=== PATIENT | male | born 1980 | race Caucasian/White ===

== ENCOUNTER 2016-08-25 22:51 | Inpatient (IN) | payer OTHER ==
[~2016-08-25] VITALS: Ht 185.4 cm; Wt 91.1 kg
[2016-08-25] MEDS ORDERED: SODIUM CHLORIDE 0.9% 1000ML 1,000 ML IV STA ×2 (23:40)
--- NOTE | 2016-08-25 23:43 | EMERGENCY ROOM VISIT NOTE ---
History Report prepared by French: Hieu Estrada Under the Supervision of: Dr. Lidia Mancera D.O. First contact with patient: 23:08 Chief Complaint: SEIZURE Stated Complaint: ALCOHOL WITHDRAWAL/ SEIZURE Nursing Triage Summary: pt arrives ALS from home. per report pt arrived from [place] yesterday to his parents house. pt went to [facility] for treatment for alcoholism. they were unable to admit him due to not having any medications for him. pt went home and drank a beer to prevent withdrawal symptoms. pt had seizure that lasted approx 1 minute. pt was post ictal upon EMS arrival. pt diaphoretic upon arrival. denies other symptoms. pt bit his tongue during seizure History of Present Illness The patient is a 36 year old male who presents to the Emergency Room with complaints of a resolved seizure that occurred at approximately 2200 tonight. The patient has a history of alcoholism and is currently withdrawing. He attempted to check in to [facility] rehab facility [facility] but was turned away because he has not yet detoxed. The patient lost consciousness and bit his tongue. The seizure lasted approximately 1.5 minutes as per the patient' s brother. The patient denies any head pain, neck pain, or abdominal pain. He came to the ED via EMS. The patient's last binge was 72 hours ago. He had one drink yesterday and one drink today. The patient seized approximately one hour after the drink he had today. The patient stopped drinking on his own. He cannot recall any specific seizures in the past, although he has woken up on the ground in a disoriented state similar to the one he is experiencing tonight. He has started to experience withdrawal symptoms over the past month. The patient ate and drank fluids normally today. The patient is from [place] , and is visiting his parents in [place]. He has a history of pancreatitis. The patient denies any history of cardiac disease. He has had EKGs in the past and was never told about an electrical abnormality. He is currently unemployed. Source of History: patient, family Onset: 2200 tonight Position: other (global) Quality: other (seizure) Timing: resolved Associated Symptoms: + LOC, No abdominal pain, No headache, No neck pain Review of Systems See HPI for pertinent positives & negatives. A total of 10 systems reviewed and were otherwise negative. Past Medical & Surgical Medical Problems: (1) Alcohol abuse (2) Alcohol withdrawal (3) Pancreatitis Family History No pertinent family history Social History Smoking Status: Current Every Day Smoker Alcohol Use: heavy Occupation Status: unemployed Current/Historical Medications Scheduled Omeprazole (Prilosec), 20 MG PO DAILY Allergies Coded Allergies: Sulfa Antibiotics (Verified Allergy, Unknown, "Sulfa" -- HIVES, 08/26/16) Physical Exam Vital Signs Date Time Temp Pulse Resp B/P Pulse Ox O2 Delivery O2 Flow Rate FiO2 08/26/16 01:59 73 22 128/79 97 Room Air 08/26/16 01:29 74 24 122/74 96 Room Air 08/26/16 00:59 76 23 128/69 97 Room Air 08/26/16 00:51 83 18 132/76 98 Room Air 08/25/16 23:52 83 18 124/66 96 Room Air 08/25/16 23:00 94 08/25/16 22:57 95 Room Air 08/25/16 22:57 37.0 88 23 117/64 97 Room Air Physical Exam HEENT: Head - normocephalic and atraumatic Pupils are equal, round, and reactive to light. Extraocular eye muscles are intact, and sclera are anicteric. Nose - moist nasal mucosa without discharge. Mouth - dry buccal mucosa. Oropharynx is nonerythematous and there is no tonsillar exudate or edema noted. Neck: Supple; no JVD, nuchal rigidity, cervical lymphadenopathy, or auscultated bruits. Heart: Tachycardic, regular rhythm. There is a normal S1 and S2 with no murmurs , clicks, or gallops appreciated. Lungs: Clear to auscultation bilaterally with no wheezes, rales, or rhonchi. Abdomen: Soft, completely nontender, nondistended, with good bowel sounds. There are no palpable pulsatile masses or hepatosplenomegaly. There is no guarding, rigidity, or rebound noted. Extremities: No evidence of cyanosis, clubbing, or edema. There are easily palpable peripheral pulses. Abrasion on dorsal aspect of right hand. Muscle spasms of the bilateral calves. Skin: Warm and dry with good turgor and no rashes. Flushed. Medical Decision & Procedures Laboratory Results Test 08/25/16 23:15 08/26/16 00:40 Immature Granulocyte % (Auto) 0.3 % White Blood Count 3.63 K/uL (4.8-10.8) Red Blood Count 3.92 M/uL (4.7-6.1) Hemoglobin 14.2 g/dL (14.0-18.0) Hematocrit 39.0 % (42-52) Mean Corpuscular Volume 99.5 fL (80-100) Mean Corpuscular Hemoglobin 36.2 pg (25-34) Mean Corpuscular Hemoglobin Concent 36.4 g/dl (32-36) Platelet Count 104 K/uL (130-400) Mean Platelet Volume 10.0 fL (7.4-10.4) Neutrophils (%) (Auto) 59.5 % Lymphocytes (%) (Auto) 29.2 % Monocytes (%) (Auto) 9.6 % Eosinophils (%) (Auto) 0.3 % Basophils (%) (Auto) 1.1 % Neutrophils # (Auto) 2.16 K/uL (1.4-6.5) Lymphocytes # (Auto) 1.06 K/uL (1.2-3.4) Monocytes # (Auto) 0.35 K/uL (0.11-0.59) Eosinophils # (Auto) 0.01 K/uL (0-0.5) Basophils # (Auto) 0.04 K/uL (0-0.2) Immature Granulocyte # (Auto) 0.01 K/uL (0.00-0.02) Nucleated RBC Absolute Count (auto) 0.03 K/uL (0-0) Nucleated Red Blood Cells % 0.7 % Prothrombin Time 12.2 SECONDS (9.0-12.0) Prothromb Time International Ratio 1.1 (0.9-1.1) Total Bilirubin 1.7 mg/dl (0.2-1) Direct Bilirubin 0.9 mg/dl (0-0.2) Aspartate Amino Transf (AST/SGOT) 469 U/L (15-37) Alanine Aminotransferase (ALT/SGPT) 218 U/L (12-78) Alkaline Phosphatase 116 U/L (45-117) Total Creatine Kinase 144 U/L (39-308) Creatine Kinase MB 2.4 ng/ml (0.5-3.6) Creatine Kinase MB Ratio 1.7 (0-3.0) Troponin I 0.021 ng/ml (0-0.045) Total Protein 6.2 gm/dl (6.4-8.2) Albumin 3.4 gm/dl (3.4-5.0) Lipase 307 U/L (73-393) Thyroid Stimulating Hormone (TSH) 4.310 uIu/ml (0.300-4.500) Ethyl Alcohol mg/dL < 3.0 mg/dl (0-3) Urine Color DK YELLOW Urine Appearance CLEAR (CLEAR) Urine pH 6.0 (4.5-7.5) Urine Specific [place] 1.020 (1.000-1.030) Urine Protein 1+ (NEG) Urine Glucose (UA) NEG (NEG) Urine Ketones NEG (NEG) Urine Occult Blood 1+ (NEG) Urine Nitrite NEG (NEG) Urine Bilirubin NEG (NEG) Urine Urobilinogen NEG (NEG) Urine Leukocyte Esterase NEG (NEG) Urine WBC (Auto) 0 /hpf (0-5) Urine RBC (Auto) 0-4 /hpf (0-4) Urine Hyaline Casts (Auto) 1-5 /lpf (0-5) Urine Epithelial Cells (Auto) 0-5 /lpf (0-5) Urine Bacteria (Auto) NEG (NEG) Urine Opiates Screen NEG (NEG) Urine Methadone, Qualitative NEG (NEG) Urine Barbiturates NEG (NEG) Urine Phencyclidine (PCP) Level NEG (NEG) Ur Amphetamine/Methamphetamine NEG (NEG) MDMA (Ecstasy) Screen NEG (NEG) Urine Benzodiazepines Screen NEG (NEG) Urine Cocaine Metabolite NEG (NEG) Urine Marijuana (THC) POS (NEG) Laboratory results per my review. Medications Administered Medications (Trade) Dose Ordered Sig/Caleb Route Start Time Stop Time Status Last Admin Dose Admin Chlordiazepoxide 50 mg 50 mg NOW ONCE PO 08/25/16 23:45 08/25/16 23:46 DC 08/25/16 23:45 50 MG Sodium Chloride 1,000 ml @ 999 mls/hr Q1H1M STAT IV 08/25/16 23:40 08/26/16 00:40 DC 08/25/16 23:51 999 MLS/HR Sodium Chloride 1,000 ml @ 250 mls/hr Q4H STAT IV 08/25/16 23:40 08/26/16 03:39 DC 08/25/16 23:51 250 MLS/HR Multivitamins/ Thiamine HCl/ Folic Acid/Sodium Chloride (Mvi Infusion Inj/Vitamin B-1 Inj/Folvite Inj/ Nss 1000ml) 1,011.2 ml @ 250 mls/ hr Q4H3M STAT IV 08/25/16 23:47 08/26/16 03:49 DC 08/26/16 00:04 250 MLS/HR Potassium Chloride (Kcl 10 Meq / Wtr) 10 meq NOW STAT IV 08/26/16 01:48 08/26/16 01:49 DC 08/26/16 04:39 10 MEQ Magnesium Sulfate (Magnesium Sulfate) 1 gm NOW STAT IV 08/26/16 01:48 08/26/16 01:49 DC 08/26/16 02:18 1 GM Procedure Medications administered include NSS, Librium PO, Multivitamins IV, Magnesium Sulfate IV, Potassium Chloride IV. ECG Indication: other (seizure) Rate (beats per minute): 89 Rhythm: sinus rhythm Findings: LBBB, no ectopy Change: 0010: Reviewed old EKG dated August 29, 2015 from [facility]. There was no evidence of LBBB,. ED Course 2320: The patient was evaluated by the [facility]. 2330: Past medical records reviewed. The patient was evaluated in room C4. A complete history and physical exam was performed. IV lock was established. 2340: NSS 1000 ml @ 999 mls/hr, NSS 1000 ml @ 999 mls/hr. 2345: Librium Cap 50 mg PO. 2347: Multivitamins 10 ml / Thiamine HCl 100 mg / Folic Acid 1 mg / NSS 1011.2 ml @ 250 mls/hr. 0010: Reviewed old EKG dated August 29, 2015 from [facility]. There was no evidence of LBBB,. 0035: The patient is now complaining of back pain. He has a bruise lateral to the right scapula. The patient is also having severe pain over his kidney. We will try to get a urine sample. 0046: Urine dipstick showed trace blood and trace protein. 0148: Magnesium Sulfate 1 mg IV, Potassium Chloride 10 meq IV. 0150: Updated the patient. He was stable. 0152: Discussed the case with Dr. Lemus, [facility]. The patient will be evaluated. Medical Decision The patient is a 36 year old male who presents to the ED with a resolved seizure. Differential diagnosis includes: alcohol withdrawal seizure DTs, grand mal seizure, cardiac dysrhythmia, drug abuse, alcohol intoxication, alcohol withdrawal. Laboratory interpretation: Negative alcohol, tox screen positive for marijuana, . Urinalysis dark in color, 1+ blood but no red blood cells. Potassium 3.2, magnesium 1.6, renal functions normal, TSH normal, troponin 0.021, total bilirubin 1.7, direct bilirubin 0.9, AST 469, ALT 218, white blood cell count 3.6, stable H&H, platelet count 104. The patient has a history of out cold abuse. He suffered an alcohol withdrawal seizure tonight. He is unsure whether or not he has a history of this in the past. He denies any other drug use besides marijuana. The patient had no further seizure activity while here in the emergency department he is resting comfortably at this time. Seizure precautions were taken. He was treated with oral Librium, a banana bag, magnesium, and potassium. [facility] for further management. Consults Time Called: 0140 Consulting Physician: Dr. Lemus, [facility] Returned Call: [phone]: Discussed the case with Dr. Lemus, [facility]. The patient will be evaluated. Impression Primary Impression: Alcohol related seizure Additional Impression: New onset left bundle branch block (LBBB) Scribe Attestation The scribe's documentation has been prepared under my direction and personally reviewed by me in its entirety. I confirm that the note above accurately reflects all work, treatment, procedures, and medical decision making performed by me. Departure Information Dispostion Being Evaluated By Hospitalist Patient Instructions A Signature Page, My [facility]
[2016-08-25] MEDS ORDERED: CHLORDIAZEPOXIDE 25 MG CAP PO ONE (23:45)
[2016-08-25] MEDS ORDERED: MULTI-VITAMIN INFUSION INJ 10 ML, THIAMINE HCL INJ 100 MG, FoLIC ACID INJ 1 MG in SODIU... IV STA (23:47)
[2016-08-25] MEDS ORDERED: PRLSR20 PO (23:50)
[2016-08-26] LABS: BASO % 1.1 %; BASO ABS # 0.04 K/uL (0-0.2); COMPLETE YES; EOS % 0.3 %; IG% 0.3 %; LYMPH % 29.2 %; LYMPH ABS # 1.06 K/uL (1.2-3.4); MEAN CELL VOLUME 99.5 fL (80-100); MEAN CORPUSCULAR HEMOGLOBIN 36.2 pg (25-34); MEAN CORPUSCULAR HGB CONC 36.4 g/dl (32-36); MONO % 9.6 %; NEUT % 59.5 %; PLATELET COUNT 104 K/uL (130-400); RED BLOOD COUNT 3.92 M/uL (4.7-6.1); WHITE BLOOD COUNT 3.63 K/uL (4.8-10.8)
[2016-08-26 01:16] LABS: MANUAL MICROSCOPIC REQUIRED? NO; REVIEW REQ? NO; URINE APPEARANCE CLEAR (CLEAR); URINE BILIRUBIN NEG (NEG); URINE COLOR DK YELLOW; URINE EPITHELIAL CELL AUTO 0-5 /lpf (0-5); URINE NITRITE NEG (NEG); UROBILINOGEN NEG (NEG)
[2016-08-26 01:29] LABS: POTASSIUM 3.2 mmol/L (3.5-5.1)
[2016-08-26] MEDS: D5NSS + 20MEQ KCL 1,000 ML IV SCH ×3 (01:30→16:51)
[2016-08-26 01:31] LABS: BUN/CREATININE RATIO 14.2 (10-20); CALCIUM 8.8 mg/dl (8.5-10.1); CREATININE 1.1 mg/dl (0.60-1.40); THYROID STIMULATING HORMONE 4.31 uIu/ml (0.300-4.500)
[2016-08-26 01:35] LABS: BENZODIAZEPINE, URINE NEG (NEG); COCAINE,URINE NEG (NEG); PHENCYCLIDINE, URINE NEG (NEG)
[2016-08-26 01:37] LABS: CKMB/CK RATIO 1.7 (0-3.0); MAGNESIUM 1.6 mg/dl (1.8-2.4)
[2016-08-26] MEDS ORDERED: POTASSIUM CHLORIDE 10 MEQ / 100ML WTR IV STA (01:48)
[2016-08-26] MEDS ORDERED: MAGNESIUM SULFATE 1GM / D5W 1 GM BAG IV STA (01:48)
[2016-08-26] MEDS ORDERED: ACETAMINOPHEN 325 MG TAB PO PRN (02:30)
[2016-08-26] MEDS ORDERED: MAGNESIUM HYDROXIDE SUSP 30 ML UDC PO PRN (02:30)
[2016-08-26] MEDS ORDERED: POLYETHYLENE (MIRALAX) 17 GM PACK PO PRN (02:30)
[2016-08-26] MEDS ORDERED: ZOLPIDEM TARTRATE 5 MG TAB PO PRN (02:30)
[2016-08-26] MEDS ORDERED: ONDANSETRON INJ 2 MG/ML 2 ML VIAL IV PRN (02:30)
--- NOTE | 2016-08-26 02:52 | History and Physical ---
History & Physical Date & Time of Service: Aug 26, 2016 at 02:30 Chief Complaint: Alcohol Withdrawal/ Seizure Primary Care Physician: No Doctor, Assigned History of Present Illness Source: patient 36 y/o M w/Hx ETOH abuse and dependence. Pt is visiting from [place] for a . He had been trying to taper himself off of excessive ETOH ingestion and had arranged to attend a local rehab facility. He was told by the facility that he needed to be ETOH-free for a 72 hour period as they do not offer detox. The pt then proceeded to have a witnessed tonic-clonic seizure and was brought into the ER by family. He had bitten his tongue but did not report incontinence and was lucid on arrival to the ER. He admits to recent excessive drinking with beer and vodka favoring IPAs for their alcohol content. He states that he has likely had previous seizures. Although he could not confirm this he states that he has passed out and woken up with aches and pains having bitten his tongue. He states that he is normally able to get through a day of work but develops tremors and anxiety toward the end of the day. He also states that he is severely depressed and that his brother who is a psychologist believes he may suffer from bipolar disorder. Initial labs reveal a hypoMg, hypoK, low platelets. EKG shows a new LBBB - he denies any cardiac complaints or history. Past Medical/Surgical History Medical Problems: (1) Alcohol abuse Status: Chronic (2) Pancreatitis Status: Resolved Family History No pertinent family history Both parents alive - no significant medical history Social History Smoking Status: Current Every Day Smoker Occupational Status: unemployed Allergies Coded Allergies: Sulfa Antibiotics (Verified Allergy, Unknown, "Sulfa" -- HIVES, 08/26/16) Home Medications Scheduled Omeprazole (Prilosec), 20 MG PO DAILY Review of Systems Constitutional: No chills, No fever, No sweats Eyes: No worsening of vision ENT: No hearing loss, No nasal symptoms, No unusual epistaxis Respiratory: No cough, No sputum, No wheezing Cardiovascular: No PND, No chest pain, No orthopnea Abdomen: No nausea, No pain, No vomiting Musculoskeletal: No joint pain Genitourinary - Male: No dysuria, No hematuria, No urinary frequency Neurologic: + problem reported (Witnessed seizure), No memory loss, No paralysis Psychiatric: + anxiety, + depression symptoms, + substance abuse Endocrine: No excessive thirst, No fatigue Hematologic / Lymphatic: No abnormal bleeding/bruising Integumentary: No rash Allergic / Immunologic: No environmental allergies Physical Exam Vital Signs Date Time Temp Pulse Resp B/P Pulse Ox O2 Delivery O2 Flow Rate FiO2 08/26/16 01:59 73 22 128/79 97 Room Air 08/26/16 01:29 74 24 122/74 96 Room Air 08/26/16 00:59 76 23 128/69 97 Room Air 08/26/16 00:51 83 18 132/76 98 Room Air 08/25/16 23:52 83 18 124/66 96 Room Air 08/25/16 23:00 94 08/25/16 22:57 95 Room Air 08/25/16 22:57 37.0 88 23 117/64 97 Room Air General Appearance: + pertinent finding (Plesant young male - appears anxious - no distress) Head: normocephalic, atraumatic Eyes: normal inspection, EOMI ENT: normal ENT inspection, pharynx normal Neck: supple, no JVD Respiratory/Chest: chest non-tender, lungs clear, normal breath sounds, no respiratory distress, no accessory muscle use Cardiovascular: regular rate, rhythm, no edema, no gallop, no JVD, no murmur, normal peripheral pulses Abdomen/GI: normal bowel sounds, non tender, soft Back: normal inspection, no CVA tenderness Extremities/Musculoskelatal: normal inspection, no calf tenderness, normal capillary refill, no pedal edema, normal range of motion 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, no motor/sensory deficits, alert, normal mood/affect, normal reflexes, oriented x 3 Skin: + pertinent finding (Facial erythema noted) Diagnostics Laboratory Results Results Past 24 Hours Test 08/25/16 23:15 08/26/16 00:40 08/26/16 02:20 Range/Units White Blood Count 3.63 4.8-10.8 K/uL Red Blood Count 3.92 4.7-6.1 M/uL Hemoglobin 14.2 14.0-18.0 g/dL Hematocrit 39.0 42-52 % Mean Corpuscular Volume 99.5 80-100 fL Mean Corpuscular Hemoglobin 36.2 25-34 pg Mean Corpuscular Hemoglobin Concent 36.4 32-36 g/dl Platelet Count 104 130-400 K/uL Mean Platelet Volume 10.0 7.4-10.4 fL Neutrophils (%) (Auto) 59.5 % Lymphocytes (%) (Auto) 29.2 % Monocytes (%) (Auto) 9.6 % Eosinophils (%) (Auto) 0.3 % Basophils (%) (Auto) 1.1 % Neutrophils # (Auto) 2.16 1.4-6.5 K/uL Lymphocytes # (Auto) 1.06 1.2-3.4 K/uL Monocytes # (Auto) 0.35 0.11-0.59 K/uL Eosinophils # (Auto) 0.01 0-0.5 K/uL Basophils # (Auto) 0.04 0-0.2 K/uL RDW Standard Deviation 46.6 36.4-46.3 fL RDW Coefficient of Variation 12.8 11.5-14.5 % Immature Granulocyte % (Auto) 0.3 % Immature Granulocyte # (Auto) 0.01 0.00-0.02 K/uL Nucleated RBC Absolute Count (auto) 0.03 0-0 K/uL Nucleated Red Blood Cells % 0.7 % Sodium Level 135 136-145 mmol/L Potassium Level 3.2 3.5-5.1 mmol/L Chloride Level 99 98-107 mmol/L Carbon Dioxide Level 19 21-32 mmol/L Anion Gap 20.0 3-11 mmol/L Blood Urea Nitrogen 16 7-18 mg/dl Creatinine 1.10 0.60-1.40 mg/dl Est Creatinine Clear Calc Drug Dose 103.9 ml/min Estimated GFR () 98.9 Estimated GFR (Non- 85.3 BUN/Creatinine Ratio 14.2 10-20 Random Glucose 147 70-99 mg/dl Calcium Level 8.8 8.5-10.1 mg/dl Magnesium Level 1.6 1.8-2.4 mg/dl Total Bilirubin 1.7 0.2-1 mg/dl Direct Bilirubin 0.9 0-0.2 mg/dl Aspartate Amino Transf (AST/SGOT) 469 15-37 U/L Alanine Aminotransferase (ALT/SGPT) 218 12-78 U/L Alkaline Phosphatase 116 45-117 U/L Total Creatine Kinase 144 39-308 U/L Creatine Kinase MB 2.4 0.5-3.6 ng/ml Creatine Kinase MB Ratio 1.7 0-3.0 Troponin I 0.021 0-0.045 ng/ml Total Protein 6.2 6.4-8.2 gm/dl Albumin 3.4 3.4-5.0 gm/dl Lipase 307 73-393 U/L Thyroid Stimulating Hormone (TSH) 4.310 0.300-4.500 uIu/ml Ethyl Alcohol mg/dL < 3.0 0-3 mg/dl Urine Color DK YELLOW Urine Appearance CLEAR CLEAR Urine pH 6.0 4.5-7.5 Urine Specific [place] 1.020 1.000-1.030 Urine Protein 1+ NEG Urine Glucose (UA) NEG NEG Urine Ketones NEG NEG Urine Occult Blood 1+ NEG Urine Nitrite NEG NEG Urine Bilirubin NEG NEG Urine Urobilinogen NEG NEG Urine Leukocyte Esterase NEG NEG Urine WBC (Auto) 0 0-5 /hpf Urine RBC (Auto) 0-4 0-4 /hpf Urine Hyaline Casts (Auto) 1-5 0-5 /lpf Urine Epithelial Cells (Auto) 0-5 0-5 /lpf Urine Bacteria (Auto) NEG NEG Urine Opiates Screen NEG NEG Urine Methadone, Qualitative NEG NEG Urine Barbiturates NEG NEG Urine Phencyclidine (PCP) Level NEG NEG Ur Amphetamine/Methamphetamine NEG NEG MDMA (Ecstasy) Screen NEG NEG Urine Benzodiazepines Screen NEG NEG Urine Cocaine Metabolite NEG NEG Urine Marijuana (THC) POS NEG EKG LBBB - new Impression Assessment and Plan 36 y/o M w/Hx ETOH abuse and dependence. Pt is visiting from [place] for a . He had been trying to taper himself off of excessive ETOH ingestion - proceeded to have a witnessed tonic-clonic seizure and was brought into the ER by family - Pt also states that he is severely depressed and that his brother who is a psychologist believes he may suffer from bipolar disorder. Intial labs reveal a hypoMg, hypoK, low platelets. EKG shows a new LBBB - he denies any cardiac complaints or history. 1) ETOH withdrawal and seizure - pt will be monitored on telemetry, we will provide scheduled Librium and PRN Ativan. He will receive IVF and a daily Banana bag. He has elevated LFTs and low platelets sp that we have ordered an abdominal US and an INR to calculate a discriminant function score which is pending. 2) HypoK, HypoMg - repleted - repeat labs pending for AM 3) New LBBB - echo ordered - has no cardiac history or related complaints - admitted to telemetry. 4) Depression - possibly bipolar - he does admit to manic episodes with irrational behavior - Psychiatry consulted SCDs only for prophylaxis due to fall and seizure risk - Full code Total time for this admit including review of records, meds, EKG, imaging - discussion with pt and ER attending - 38 min VTE Prophylaxis VTE Risk Assessment Done? Y/N: Yes Risk Level: Low
[2016-08-26 03:10] LABS: INR 1.1 (0.9-1.1); PROTHROMBIN TIME (PATIENT) 12.2 SECONDS (9.0-12.0)
[2016-08-26 03:46] VITALS: BP 146/90; PULSE 82; TEMP 36.7; O2SAT 96; Ht 185.4 cm; Wt 91.1 kg
[2016-08-26] MEDS ORDERED: CHLORDIAZEPOXIDE 10 MG CAP PO SCH (04:00)
[2016-08-26] MEDS ORDERED: INFLUENZA VIRUS QUAD VACCINE 0.5 ML SYR IM. ONE (04:15)
[2016-08-26] MEDS ORDERED: INFLUENZA ADMINISTRATION CHARGE ONE (04:15)
[2016-08-26] MEDS: LORAZEPAM 2 MG/ML 1 ML VIAL IV PRN ×5 (04:24→23:09)
[2016-08-26 05:48] LABS: HEMATOCRIT 37.2 % (42-52); MEAN CORPUSCULAR HEMOGLOBIN 35.5 pg (25-34); MEAN CORPUSCULAR HGB CONC 35.5 g/dl (32-36); RED BLOOD COUNT 3.72 M/uL (4.7-6.1); WHITE BLOOD COUNT 4.75 K/uL (4.8-10.8)
[2016-08-26 06:22] LABS: MEAN PLATELET VOLUME 10.2 fL (7.4-10.4); PLATELET COUNT 84 K/uL (130-400); PLT ESTIMATE DECREASED
[2016-08-26 06:29] LABS: BUN/CREATININE RATIO 13.2 (10-20); CALCIUM 7.8 mg/dl (8.5-10.1); MAGNESIUM 2.4 mg/dl (1.8-2.4); POTASSIUM 3.4 mmol/L (3.5-5.1)
[2016-08-26 06:50] LABS: CREATININE 0.77 mg/dl (0.60-1.40)
[2016-08-26 08:35] VITALS: BP 144/96; PULSE 82; TEMP 36.8; O2SAT 97
[2016-08-26] MEDS ORDERED: LORAZEPAM 2 MG/ML 1 ML VIAL IV PRN (09:30)
--- NOTE | 2016-08-26 09:34 | DIAGNOSTIC IMAGING REPORT ---
ABDOMINAL ULTRASOUND, RIGHT UPPER QUADRANT HISTORY: eval for cirrhosis. COMPARISON: None. FINDINGS: Pancreas: The visualized pancreas demonstrates a normal echotexture. Liver: The liver is echogenic consistent with fatty change. No evidence for cirrhosis. The liver is enlarged measuring 22 cm in length. Gallbladder: No gallbladder wall thickening. No gallstones. CBD: 5 mm. Right kidney: No hydronephrosis. IMPRESSION: 1. Hepatomegaly demonstrating fatty change. No evidence for cirrhosis. 2. Normal gallbladder. No gallstones. Electronically signed by: Allan Ram M.D. 08/26/2016 9:32 AM Dictated Date/Time: 08/26/2016 9:30 AM
[2016-08-26] MEDS ORDERED: LORAZEPAM INJ 1 MG in SYRINGE 0.5 ML IV PRN (09:45)
--- NOTE | 2016-08-26 10:36 | ECHOCARDIOGRAM REPORT ---
*NOTICE TO RECEIVING REPUBLICAN AGENCY This information is strictly Confidential and protected under [place] law. [place] law prohibits you from making any further disclosure of this information unless further disclosure is expressly permitted by the written consent of the person to whom it pertains or is authorized by law. A general authorization for the release of medical or other information is not sufficient for this purpose. Hospital accepts no responsibility if the information is made available to any other person, INCLUDING THE PATIENT. Interpretation Summary * Name: FLAVIO RYAN Study Date: 08/26/2016 07:31 AM BP: 146/90 mmHg * Patient Location: C.2E\S\E203\S\1 HR: 82 * : 1980 (M/d/yyyy) Gender: Male Height: 73 in * Age: 36 yrs Ethnicity: CA Weight: 207 lb * Ordering Physician: Jac Lemus * Performed By: oMira Hdez * * Reason For Study: LBBB * BSA: 2.2 m2 * -- Conclusions -- * Left ventricular systolic function is severely reduced. * There is severe global hypokinesis of the left ventricle. * Ejection Fraction = 25-30%. * There is moderate to severe mitral regurgitation. Procedure Details * A complete two-dimensional transthoracic echocardiogram was performed (2D, M-mode, Doppler and color flow Doppler). Left Ventricle * The left ventricle is moderately dilated. * There is normal left ventricular wall thickness. * Ejection Fraction = 25-30%. * Left ventricular systolic function is severely reduced. * There is severe global hypokinesis of the left ventricle. Right Ventricle * The right ventricle is grossly normal size. * There is normal right ventricular wall thickness. * The right ventricular systolic function is normal as assessed by tricuspid annular plane systolic excursion (TAPSE) (normal >1.5 cm). Atria * The left atrium is mildly dilated. * Right atrial size is normal. * There is no evidence of atrial septal defect, but resolution does not allow assessment for a patent foramen ovale. Mitral Valve * The mitral valve anatomy is normal. * There is no mitral valve stenosis. * There is moderate to severe mitral regurgitation. Tricuspid Valve * The tricuspid valve anatomy is normal. * There is no tricuspid stenosis. * There is mild tricuspid regurgitation. * Doppler findings do not suggest pulmonary hypertension. Aortic Valve * The aortic valve is normal in structure and function. * No hemodynamically significant valvular aortic stenosis. * There is no significant aortic regurgitation. Pulmonic Valve * The pulmonary valve is not well seen, but the Doppler examination is normal without significant regurgitation or stenosis. * There is no significant pulmonary regurgitation. Great Vessels * The aortic root is normal size. Pericardium/Pleural * There is no pericardial effusion. * There is no pleural effusion. Great Vessels * Normal inferior vena cava size and collapsability with sniff indicates a normal right atrial pressure of 3 mmHg MMode 2D Measurements and Calculations IVSd 0.88 cm IVSs 0.84 cm LVIDd 6.9 cm LVIDs 5.9 cm LVPWd 0.87 cm LVPWs 1.7 cm IVS/LVPW 1.0 FS 14.9 % EDV(Teich) 247.9 ml ESV(Teich) 171.8 ml EF(Teich) 30.7 % EDV(cubed) 329.6 ml ESV(cubed) 203.1 ml EF(cubed) 38.4 % % IVS thick -4.46 % % LVPW thick 96.7 % LV mass(C)d 267.0 grams LV mass(C)dI 122.3 grams/m\S\2 LV mass(C)s 331.2 grams LV mass(C)sI 151.7 grams/m\S\2 SV(Teich) 76.1 ml SI(Teich) 34.9 ml/m\S\2 SV(cubed) 126.5 ml SI(cubed) 57.9 ml/m\S\2 EPSS 2.1 cm ACS 1.5 cm LA dimension 4.7 cm asc Aorta Diam 2.7 cm LVOT diam 1.8 cm LVOT area 2.7 cm\S\2 LVAd ap4 57.4 cm\S\2 LVLd ap4 10.2 cm EDV(MOD-sp4) 261.7 ml EDV(sp4-el) 273.3 ml LVAs ap4 46.1 cm\S\2 LVLs ap4 8.7 cm ESV(MOD-sp4) 199.6 ml ESV(sp4-el) 206.5 ml EF(MOD-sp4) 23.8 % EF(sp4-el) 24.4 % LVAd ap2 61.9 cm\S\2 LVLd ap2 10.3 cm EDV(MOD-sp2) 305.7 ml EDV(sp2-el) 315.5 ml LVAs ap2 51.9 cm\S\2 LVLs ap2 10.0 cm ESV(MOD-sp2) 220.0 ml ESV(sp2-el) 229.0 ml EF(MOD-sp2) 28.0 % EF(sp2-el) 27.4 % LVLd %diff 0.82 % EDV(MOD-bp) 279.6 ml LVLs %diff 12.5 % ESV(MOD-bp) 222.8 ml EF(MOD-bp) 20.3 % SV(MOD-sp4) 62.2 ml SI(MOD-sp4) 28.5 ml/m\S\2 SV(MOD-sp2) 85.6 ml SI(MOD-sp2) 39.2 ml/m\S\2 SV(MOD-bp) 56.8 ml SI(MOD-bp) 26.0 ml/m\S\2 SV(sp4-el) 66.8 ml SI(sp4-el) 30.6 ml/m\S\2 SV(sp2-el) 86.6 ml SI(sp2-el) 39.7 ml/m\S\2 Doppler Measurements and Calculations MV E max marycruz 101.9 cm/sec MV A max marycruz 117.0 cm/sec MV E/A 0.87 MV V2 max 141.2 cm/sec MV max PG 8.0 mmHg MV V2 mean 78.8 cm/sec MV mean PG 3.0 mmHg MV V2 VTI 40.2 cm MV dec time 0.24 sec Ao V2 max 148.3 cm/sec Ao max PG 8.8 mmHg Ao max PG (full) 5.4 mmHg MAICO(V,A) 1.6 cm\S\2 MAICO(V,D) 1.6 cm\S\2 LV V1 max PG 3.4 mmHg LV V1 max 91.9 cm/sec MR max marycruz 553.9 cm/sec MR max PG 122.8 mmHg MR mean marycruz 369.1 cm/sec MR mean PG 65.7 mmHg MR VTI 194.7 cm MR PISA 1.8 cm\S\2 MR PISA radius 0.53 cm PA V2 max 93.8 cm/sec PA max PG 3.5 mmHg TR max marycruz 260.1 cm/sec
[2016-08-26] MEDS: MULTI-VITAMIN INFUSION INJ 10 ML, THIAMINE HCL INJ 100 MG, FoLIC ACID INJ 1 MG in SODIU... IV SCH (11:07)
[2016-08-26] MEDS ORDERED: PANTOprazole SOD 40 MG TAB PO ONE (11:15)
[2016-08-26] MEDS ORDERED: NICOTINE 14 MG/24 HR TDSY TD ONE (11:15)
[2016-08-26] MEDS ORDERED: CHLORDIAZEPOXIDE 25 MG CAP PO SCH (12:00)
[2016-08-26 12:10] VITALS: BP 142/96; PULSE 99; TEMP 37; O2SAT 97
[2016-08-26] MEDS ORDERED: GABAPENTIN 600 MG TAB PO SCH (14:00)
--- NOTE | 2016-08-26 14:08 | Psychiatric Progress Notes ---
Psychiatric Progress Note Date of Service Aug 26, 2016. Notes consult dictated Dx: ETOH withdrawal; ETOH use disorder; ETOH induced mood disorder; r/o bipolar affective disorder (appears likely) Plan: - please see dictated consultation for full assessment - will place him on gabapentin PARDEEP protocol for mitigation of seizure risk and reduce discomfort associated with withdrawal. - ativan prn as per pardeep protocol - d/c librium in favor of above. (metabolism may be delayed given his hepatic impairment) - encouraged direct dispo to rehab when medically cleared. he verbalized agreement - may benefit from mood stabilizer longer term as he sounds likely to have an underlying bipolar spectrum illness. will defer initiation of such while in acute withdrawal but can be considered at rehab and we discussed options. rec outpatient psych f/u as well
[2016-08-26] MEDS ORDERED: GABAPENTIN 600 MG TAB PO ONE (14:30)
[2016-08-26 15:21] VITALS: BP 122/68; PULSE 88; TEMP 36.6; O2SAT 96
[2016-08-26] MEDS: ALUMINUM/MAGNESIUM/SIMETH (MAALOX MAX) 30 ML UDC PO PRN (17:40)
[2016-08-26 19:38] VITALS: BP 124/77; PULSE 89; TEMP 36.6; O2SAT 96
--- NOTE | 2016-08-26 20:01 | PSYCHIATRIC CONSULTATION ---
DATE OF CONSULTATION: 08/26/2016 IDENTIFYING INFORMATION: This is a 36-year-old, single gentleman with a history of alcohol abuse and dependence who was admitted following a seizure yesterday HPI: Patient reportedly had a tonic-clonic seizure witnessed by his family who brought him to the ER, bit tongue, did not report incontinence, appeared lucid on arrival to ER. He admitted to excessive drinking of beer, vodka and endorsed possibility of prior seizure activity, although it was uncertain. He does report developing tremors and anxiety toward end of day in absence of alcohol. He expressed feeling severely depressed and it was noted that his brother who is a psychologist believed he may have bipolar disorder. Initial labs showed hypomagnesemia, hypokalemia, low platelets. EKG showed a left bundle branch block, he was treated with electrolyte repletion, echo ordered and admitted to telemetry. He has received chlordiazepoxide and lorazepam so far, as well as banana bag. On interview, patient was interviewed alone and then in company of his 2 brothers and mother at bedside with his permission. He describes a long history of ups and downs in his mood. He does describe feeling overly energized, can go a few days without needing much or any sleep without feeling tired, experiences thought racing, increased impulsivity such as spending, sexual indiscretions, risk taking behavior such as driving while intoxicated. It is not uncommon for his up times to end in some sort of legal problem, such as being picked up by the police for intoxication or DUI. These will often be followed by a crash of increased depression which is his primary mood state at baseline. The patient denies that he becomes suicidal when depressed but does feel very bad about himself and his circumstances which is in ly[place] contrast how he feels when on the up side where he feels sort of invincible, "like I am better than everyone else." He denies lea psychosis while manic in the form of hallucinations or particular delusions, although he does seem a little hesitant to fully disclose the possibility of historical hallucinations. He describes recent poor appetite with associated weight loss. Adequate concentration. Denies confusion or obvious cognitive impairment. He does feel sometimes acutely anxious, dizzy, sweaty, which seems to be occurring more frequently in recent history. He is uncertain if this seems to be triggered by any particular situation or activity. Recent stressors include separation from his significant other of 13 years and their 11-year-old daughter who reportedly kicked him out of the house a few months ago secondary to behaviors related to his drinking. He does express some hopefulness that he will be able to repair that relationship over time. PAST PSYCHIATRIC HISTORY: The patient denies any formalized psychiatric history, has never seen a psychologist or psychiatrist. Denies history of psychotropic medication use. No prior self-harm attempts or psychiatric hospitalizations. PAST MEDICAL HISTORY: Notable for alcohol abuse and history of pancreatitis. FAMILY HISTORY: Denies known history of bipolar disorder; however, they do report significant depression in a maternal grandfather and also depression and anxiety in maternal grandmother. There is also anxiety and depression in mother and a history of alcohol misuse, I believe in the maternal grandfather. 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 Reports legal history including possession of marijuana, 4 DUIs, has missed court hearings. Recent psychological trauma includes of grandparent. SUBSTANCE ABUSE HISTORY: The patient reports onset of alcohol use at a young age. He is unable to recall most recent sobriety, believing possibly only 5 days without alcohol in the last 6 months. He reports multiple DUIs related to alcohol use as well as loss of his family unit in the recent months. 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 He becomes tremulous towards the end of the day without alcohol use. There is a possibility of a history of seizures, likely withdrawal seizure that he experienced yesterday prior to his presentation here. He has participated in AA briefly in the past but did not feel that it was for him. He has never done any formalized rehab, last drank yesterday at 6:00 p.m. He denies illicit drug use including prescription drug abuse. OUTPATIENT MEDICATIONS: Omeprazole 20 mg daily. Please see EMR for current inpatient medications which were reviewed at the time of consultation. ALLERGIES: SULFA. REVIEW OF SYSTEMS: Notable for feeling anxious, sweaty, shaky. Denies confusion, denies hallucinations. Denies SI, HI. Denies chest pain, denies shortness of breath. PHYSICAL EXAMINATION: VITAL SIGNS: Temperature 37, pulse 99, respirations 20, blood pressure 142/96, pulse ox 97. LABORATORIES: Reviewed as per EMR, WBC low at 4.75 today. Hemoglobin and hematocrit also low, platelets low at 84. Chem panel showed a normal sodium, low potassium at 3.4, BUN 10, creatinine 0.77, EGFR 134.4, calcium low at 7.8, T bili elevated at 2.2. LFTs elevated with AST 367, ALT 183 which are down trending from initials values. Alkaline phosphatase 110. Albumin was initially normal at 3.4 and now 3.2. Total protein low at 5.7. TSH normal at 4.310. He had an ethyl alcohol level less than 3 on presentation. Positive THC on UDS. He did have an abnormal EKG in the ER with left bundle branch block, long QTc and an echo was done this morning, showing left ventricular systolic dysfunction and impaired EF. MENTAL STATUS EXAMINATION: The patient is an uncomfortable appearing gentleman, wearing a hospital gown, lying in the hospital bed. Makes good eye contact, notable mild tremor in upper extremities with extension, participatory in interview. Speech is somewhat minimal, adequately articulated. Use of language within normal limits. Thought process appears logical in response to questions. No obvious delusions. He denies suicidal or homicidal ideation. No evidence of response to internal stimuli and he denies hallucinations. He describes his mood as anxious and depressed. Affect constricted. He does not smile. He is not tearful but he appears nervous and somewhat melancholy. Insight appears likely limited at baseline. Judgment and impulse control also limited. Estimated level of intelligence appears fairly average. He is fully oriented and able to calculate world forward and backward, name 5 cities in speaking with the liaison nurse. ASSESSMENT: A 36-year-old gentleman who sounds to likely have an underlying bipolar diathesis with superimposed alcohol use disorder and associated withdrawal and likely exacerbation of mood symptomatology. Primary intervention presently is to get him through the acute withdrawal and into alcohol rehab facility for continued treatment. He may benefit from a mood stabilizer in addition to alcohol intervention. However, given hepatic impairment and current clinical status, I would defer initiation of something like lamotrigine or lithium for the time being and he can consider this either with the physician at the rehab or as an outpatient. No acute safety concerns appreciated. He has no history of self-harm and is not expressing any suicidal or homicidal ideation. He is not endorsing hallucinations or other evidence of psychosis. Dx: ETOH withdrawal; ETOH use disorder; ETOH induced mood disorder; r/o bipolar disorder PLAN: 1. Alcohol withdrawal - will discontinue the chlordiazepoxide and current Ativan p.r.n. order and substitute the LINDA protocol with a loading dose and taper of gabapentin as per protocol and Ativan p.r.n. per protocol to reduce risk of seizure and also to reduce acute withdrawal symptoms. Risks and benefits of neurontin discussed. Pt verbalized understanding. 2. Strongly encouraged the patient to pursue inpatient substance abuse rehab and we did discuss psychosocial interventions for that additionally, upon returning home. 3. Again, patient likely has an underlying bipolar disorder. He may get some acute mood stabilizing benefit from the gabapentin. He needs a period of time for abstinence from the alcohol to really diagnose an underlying mood disorder apart from what might be precipitated by his alcohol dependency. 4. will [address] [facility] [place]
[2016-08-26] MEDS: GABAPENTIN 600MG Q6H DOSE PO SCH (21:46)
[2016-08-26 23:55] VITALS: BP 125/84; PULSE 88; TEMP 36.6; O2SAT 97
[2016-08-27] MEDS ORDERED: NURSING VERBAL MED ORDER ONE (01:45)
[2016-08-27] MEDS: GABAPENTIN 600MG Q6H DOSE PO SCH (03:35)
[2016-08-27] MEDS: LORAZEPAM 2 MG/ML 1 ML VIAL IV PRN ×6 (03:58→23:29)
[2016-08-27 04:00] VITALS: BP 126/86; PULSE 88; TEMP 36.8; O2SAT 99
--- NOTE | 2016-08-27 07:25 | Progress Note ---
Progress Note [facility] Echo comlpeted - revealed EF 25% - pt without related symptoms - cardiology consult requested - signed out to AM team
[2016-08-27 07:57] VITALS: BP 141/91; PULSE 100; TEMP 36.9; O2SAT 97
[2016-08-27] MEDS: NICOTINE 14 MG/24 HR TDSY TD SCH (08:12)
[2016-08-27] MEDS: PANTOprazole SOD 40 MG TAB PO SCH (08:12)
[2016-08-27] MEDS: GABAPENTIN 600MG Q8H DOSE PO SCH ×2 (08:12→15:36)
[2016-08-27] MEDS: CARVEDILOL 3.125 MG TAB PO SCH ×2 (09:37→21:28)
[2016-08-27] MEDS: LISINOPRIL 5 MG TAB PO SCH (09:37)
--- NOTE | 2016-08-27 09:51 | CONSULTATION REPORT ---
DATE OF CONSULTATION: 08/27/2016 REASON FOR CONSULTATION: 1. Newly diagnosed Cardiomyopathy, LVEF 25% to 30% - likely alcohol induced. 2. Moderate to severe MR. 3. Newly diagnosed LBBB. HISTORY OF PRESENT ILLNESS: Mr. [place] is a 36-year-old alcoholic white male with a history of possible bipolar disorder, pancreatitis, and heavy substance abuse -- in particular alcohol. He also has used marijuana on a relatively frequent basis, and remotely used cocaine. He has not had any recent cocaine use. The patient presented acutely to [facility] on 08/25/2016 after having a tonic clonic seizure activity secondary to alcohol withdrawal. His initial EKG revealed a new left bundle branch block. Additionally, he was noted to be hypomagnesemic, hypokalemic and thrombocytopenic. The patient underwent an Echocardiogram which showed severely reduced LVEF of 25% to 30%, severe global hypokinesis, and moderate to severe MR. The patient does admit to occasional shortness of breath if he tries to walk up a very steep hill, and occasionally he has awakened with shortness of breath over the past year or two. He does admit to occasional lightheadedness, but denies any syncopal episodes to his knowledge. He denies any exertional chest pain, heaviness, tightness, or pressure. No exertional neck, jaw, back, or arm pain. No recent orthopnea or PND. No palpitations, tachy palpitations, or syncope. Additional cardiac risk factors include chronic tobacco use/nicotine dependence. MEDICATIONS: 1. Gabapentin. 2. Protonix 40 mg daily. 3. Nicoderm CQ 14 mg. 4. Lorazepam 1 mg IV q. 1 hour p.r.n. for symptoms of alcohol withdrawal. 5. Lactated ringer. 6. Tylenol p.r.n. 7. Maalox Max p.r.n. 8. Milk of Magnesia p.r.n. 9. Ambien 5 mg at bedtime p.r.n. 10. Zofran 4 mg IV q. 6 hours p.r.n. 11. MiraLax 17 grams daily as needed for constipation. ALLERGIES: SULFA DRUGS. PAST MEDICAL HISTORY: 1. Alcoholism. 2. Probable bipolar disorder. 3. History of pancreatitis. 4. Currently with abnormal LFTs. 5. Seizures secondary to alcohol withdrawal. 6. Nicotine dependence. 7. Substance abuse. SOCIAL HISTORY: The patient is a graduate from [employer]. 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 He lives in the [place] area, and is in town for a (one of his grandparents ). History of marijuana use. Alcoholism, he drinks vodka or IPAs on a daily basis. Remotely used cocaine, but none recently. FAMILY HISTORY: Significant for depression in his mother's side. Anxiety, depression and alcohol abuse in his maternal grandfather. PHYSICAL EXAMINATION: VITAL SIGNS: Temperature is 36.9 degree Celsius, pulse is 90 and regular, respiratory rate is 18 and unlabored, blood pressure is 141/91. SPO2 is 97% on room air. GENERAL: The patient is in no acute distress. He is awake and interactive. Answers questions appropriately. HEENT: Head is atraumatic, normocephalic. EOMs intact. Sclerae are anicteric. Facies symmetric. No perioral cyanosis. NECK: Without thyromegaly, adenopathy, or JVD. Jugular venous pressure is at the level of the clavicle sitting upright. CHEST AND LUNGS: Clear to auscultation throughout all lung suazo, no wheezes, rales or rhonchi. CARDIOVASCULAR: S1 and S2 are regular with a very faint grade 1/6 apical systolic murmur. No diastolic murmurs appreciated. No obvious gallops or rubs. PMI is laterally displaced. No lifts, heaves, or thrills. No abdominal, aortic or renal bruits. ABDOMEN: Bowel sounds present. No masses, organomegaly, or tenderness. EXTREMITIES: Without clubbing, cyanosis or edema. NEUROLOGIC: The patient is awake, alert, and interactive. Answers questions appropriately. Speech is clear. Normal movement in bilateral upper and lower extremities. Gait pattern not assessed. EKG on admission showed normal sinus rhythm at a rate of 90 beats per minute with a left bundle branch block pattern. Current telemetry monitoring reveals normal sinus rhythm to sinus tachycardia. He has had a few ventricular couplets and triplets, no sustained runs. LABORATORIES: White blood cell count 4.75. Hemoglobin 13.2 g/dl, hematocrit 37.2%. Platelet count is 84,000. Sodium is 138 mmol/L, potassium 3.4 mmol/L. BUN is 10 mg/dL. Creatinine is 0.77 mg/dL. Random glucose is 98 mg/dL. LFTs abnormal. Total CK 144 units per liter with a CK-MB of 2.4 ng/mL. Troponin I of 0.021 ng/mL on admission. TSH is 4.310, likely hypothyroid. Drug screen positive for urine marijuana. Alcohol less than 3.0 mg/dL. INR is 1.1. Echocardiogram as described above. Moderately dilated LV with severe global hypokinesis, LVEF 25% to 30% with moderate to severe MR. ASSESSMENT: 1. Cardiomyopathy,likely alcoholic versus idiopathic. LVEF 25% to 30%. 2. Moderate to severe MR, likely secondary to left ventricular dilatation and stretching of mitral annulus. 3. LBBB -- secondary to problem # 1. 4. Alcoholism. 5. Delirium tremens / witnessed tonic - clonic seizure activity. 6. Probable bipolar disorder. 7. Nicotine dependence. PLAN: 1. We had a long discussion with the patient regarding his current diagnoses, and he was given illustrations as well. Discussed the fact that his Cardiomyopathy is likely the result of heavy alcohol use, and he is aware that it is potentially reversible. 2. Strongly encouraged smoking cessation. 3. Maintain a low sodium, heart healthy diet. Monitor daily weights. 4. Begin Coreg 3.125 mg b.i.d. 5. Begin Lisinopril 5 mg daily. 6. Continue to monitor daily basic metabolic panel. 7. Discussed the importance of alcohol abstinence. 8. We will most likely titrate Coreg rapidly if his heart rate and blood pressure allow. 9. He is aware that going forward he will need to establish with a instructional coach in the [place] area and have a followup echocardiograms in the next 3-6 months. 10. All the patient's questions were answered to his satisfaction. CHIN
[2016-08-27 11:02] LABS: HEMATOCRIT 41.9 % (42-52); MEAN CORPUSCULAR HEMOGLOBIN 35.9 pg (25-34); MEAN CORPUSCULAR HGB CONC 35.6 g/dl (32-36); MEAN PLATELET VOLUME 10.6 fL (7.4-10.4); PLATELET COUNT 100 K/uL (130-400); RED BLOOD COUNT 4.15 M/uL (4.7-6.1); WHITE BLOOD COUNT 7.01 K/uL (4.8-10.8)
[2016-08-27 11:33] VITALS: BP 130/89; PULSE 95; TEMP 36.5; O2SAT 97
[2016-08-27 11:39] LABS: BUN/CREATININE RATIO 7.7 (10-20); CALCIUM 9.3 mg/dl (8.5-10.1); CREATININE 0.73 mg/dl (0.60-1.40); MAGNESIUM 2.1 mg/dl (1.8-2.4); POTASSIUM 3.8 mmol/L (3.5-5.1)
[2016-08-27 11:47] LABS: PHOSPHORUS 1.7 mg/dl (2.5-4.9)
[2016-08-27] MEDS: MULTI-VITAMIN INFUSION INJ 10 ML, THIAMINE HCL INJ 100 MG, FoLIC ACID INJ 1 MG in SODIU... IV SCH (11:48)
--- NOTE | 2016-08-27 15:23 | DIAGNOSTIC IMAGING REPORT ---
CHEST 2 VIEWS ROUTINE CLINICAL HISTORY: Chronic cough. COMPARISON STUDY: No previous studies for comparison. FINDINGS: Lung volumes are normal. No consolidation is identified. There is no evidence of pulmonary edema. Cardiac size is within normal limits. There is no pneumothorax or pleural effusion. IMPRESSION: No acute cardiopulmonary findings. Electronically signed by: Enoch Dunn M.D. 08/27/2016 3:21 PM Dictated Date/Time: 08/27/2016 3:20 PM
[2016-08-27] MEDS: GUAIFENESIN 600 MG TABCR PO SCH ×2 (15:36→21:28)
[2016-08-27 16:00] VITALS: BP 109/68; PULSE 88; TEMP 37; O2SAT 97
--- NOTE | 2016-08-27 17:25 | Medical Student: [facility] ---
Med Student Progress Note Date of Service Aug 27, 2016. Subjective Pt evaluation today including: conversation w/ patient, conversation w/ family , physical exam, chart review, review of studies Pt is a 36 year old male with a history of alcohol abuse who is admitted after having a witnessed alcohol withdrawal seizure on 08/25/16. He has had no further seizure-like activity since then. He c/o anxiety, tingling in his fingertips, and a tremor in his hands. He denies hallucinations. He also c/o a chronic cough , which he has had for the last 3 months with occasional yellow sputum production. He denies recent fever or dyspnea. He also c/o LUQ and mild RUQ pain , but no nausea, vomiting, diarrhea, or constipation. Review of Systems Constitutional: + see HPI Respiratory: + see HPI Cardiac: No chest pain Abdomen: + see HPI Psychiatric: + see HPI All Other Systems: Reviewed and Negative Objective Vital Signs Date Time Temp Pulse Resp B/P Pulse Ox O2 Delivery O2 Flow Rate FiO2 08/27/16 12:00 Room Air 08/27/16 11:33 36.5 95 18 130/89 97 Room Air 08/27/16 08:00 Room Air 08/27/16 07:57 36.9 100 18 141/91 97 Room Air 08/27/16 04:00 Room Air 08/27/16 04:00 36.8 88 17 126/86 99 Room Air 08/26/16 23:59 Room Air 08/26/16 23:55 36.6 88 17 125/84 97 Room Air 08/26/16 20:00 Room Air 08/26/16 19:38 36.6 89 18 124/77 96 08/26/16 16:00 Room Air Physical Exam General Appearance: WD/WN, no apparent distress Eyes: bilateral eyes EOMI, bilateral eyes normal inspection Respiratory/Chest: lungs clear, normal breath sounds, no respiratory distress, no accessory muscle use Cardiovascular: regular rate, rhythm, no edema, no gallop, no JVD, no murmur Abdomen: normal bowel sounds, soft, + tenderness (LUQ and mild RUQ), + pertinent finding (Liver edge 1-2 finger breadths below the costal margin. No splenomegaly. 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 ) Skin: normal color, warm/dry, no rash Comments: Echocardiogram obtained 08/26/16: * -- Conclusions -- * Left ventricular systolic function is severely reduced. * There is severe global hypokinesis of the left ventricle. * Ejection Fraction = 25-30%. * There is moderate to severe mitral regurgitation. Laboratory Results Last 24 Hours Test 08/27/16 10:10 White Blood Count 7.01 K/uL Red Blood Count 4.15 M/uL Hemoglobin 14.9 g/dL Hematocrit 41.9 % Mean Corpuscular Volume 101.0 fL Mean Corpuscular Hemoglobin 35.9 pg Mean Corpuscular Hemoglobin Concent 35.6 g/dl RDW Standard Deviation 49.9 fL RDW Coefficient of Variation 13.4 % Platelet Count 100 K/uL Mean Platelet Volume 10.6 fL Sodium Level 137 mmol/L Potassium Level 3.8 mmol/L Chloride Level 102 mmol/L Carbon Dioxide Level 24 mmol/L Anion Gap 11.0 mmol/L Blood Urea Nitrogen 6 mg/dl Creatinine 0.73 mg/dl Est Creatinine Clear Calc Drug Dose 156.5 ml/min Estimated GFR () 137.3 Estimated GFR (Non- 118.5 BUN/Creatinine Ratio 7.7 Random Glucose 89 mg/dl Calcium Level 9.3 mg/dl Phosphorus Level 1.7 mg/dl Magnesium Level 2.1 mg/dl Total Bilirubin 2.1 mg/dl Aspartate Amino Transf (AST/SGOT) 177 U/L Alanine Aminotransferase (ALT/SGPT) 153 U/L Alkaline Phosphatase 111 U/L Total Protein 6.7 gm/dl Albumin 3.4 gm/dl Globulin 3.3 gm/dl Albumin/Globulin Ratio 1.0 Medications Medications Administered Medications (Trade) Dose Ordered Sig/Caleb Route Start Time Stop Time Status Last Admin Dose Admin Chlordiazepoxide 50 mg 50 mg NOW ONCE PO 08/25/16 23:45 08/25/16 23:46 DC 08/25/16 23:45 50 MG Sodium Chloride 1,000 ml @ 999 mls/hr Q1H1M STAT IV 08/25/16 23:40 08/26/16 00:40 DC 08/25/16 23:51 999 MLS/HR Sodium Chloride 1,000 ml @ 250 mls/hr Q4H STAT IV 08/25/16 23:40 08/26/16 03:39 DC 08/25/16 23:51 250 MLS/HR Multivitamins/ Thiamine HCl/ Folic Acid/Sodium Chloride (Mvi Infusion Inj/Vitamin B-1 Inj/Folvite Inj/ Nss 1000ml) 1,011.2 ml @ 250 mls/ hr Q4H3M STAT IV 08/25/16 23:47 08/26/16 03:49 DC 08/26/16 00:04 250 MLS/HR Potassium Chloride (Kcl 10 Meq / Wtr) 10 meq NOW STAT IV 08/26/16 01:48 08/26/16 01:49 DC 08/26/16 04:39 10 MEQ Magnesium Sulfate (Magnesium Sulfate) 1 gm NOW STAT IV 08/26/16 01:48 08/26/16 01:49 DC 08/26/16 02:18 1 GM Al Hydrox/Mg Hydrox/ Simethicone 15 ml 15 ml Q4H PRN PO 08/26/16 02:30 09/25/16 02:29 08/26/16 17:40 15 ML Multivitamins 10 ml/Thiamine HCl 100 mg/Folic Acid 1 mg/Sodium Chloride 1,011.2 ml @ 150 mls/ hr Q24H IV 08/26/16 12:00 09/25/16 11:59 08/27/16 11:48 150 MLS/HR Potassium Chloride/Dextrose/ Sod Cl (D5nss + 20meq KCl) 1,000 ml @ 125 mls/hr Q8H IV 08/26/16 04:30 08/27/16 01:56 DC 08/26/16 16:51 125 MLS/HR Chlordiazepoxide (Librium Cap) 10 mg Q8H PO 08/26/16 04:00 08/26/16 09:17 DC 08/26/16 04:24 10 MG Lorazepam (Ativan Inj) 2 mg Q3H PRN IV 08/26/16 02:30 08/26/16 09:37 DC 08/26/16 07:47 2 MG Chlordiazepoxide (Librium Cap) 25 mg Q8H PO 08/26/16 12:00 08/26/16 14:03 DC 08/26/16 11:07 25 MG Pantoprazole Sodium (Protonix Tab) 40 mg QAM PO 08/27/16 09:00 09/26/16 08:59 08/27/16 08:12 40 MG Nicotine (Nicoderm Cq 14MG Patch) 1 patch QAM TD 08/27/16 09:00 09/26/16 08:59 08/27/16 08:12 1 PATCH Miscellaneous (Remove Nicoderm Patch) 1 ea HS N/A 08/26/16 21:00 09/25/16 20:59 08/26/16 21:00 1 EA Pantoprazole Sodium (Protonix Tab) 40 mg NOW ONCE PO 08/26/16 11:15 08/26/16 11:16 DC 08/26/16 11:50 40 MG Nicotine (Nicoderm Cq 14MG Patch) 1 patch NOW ONCE TD 08/26/16 11:15 08/26/16 11:16 DC 08/26/16 11:51 1 PATCH Lorazepam (Ativan Inj) 1 mg Q1H PRN IV 08/26/16 14:00 09/25/16 13:59 08/27/16 15:36 1 MG Gabapentin (Neurontin Tab) 1,200 mg TODAY@1430 ONCE PO 08/26/16 14:30 08/26/16 14:32 DC 08/26/16 14:38 1,200 MG Gabapentin (Neurontin Tab) 600 mg Q6H PO 08/26/16 20:30 08/27/16 02:31 DC 08/27/16 03:35 600 MG Gabapentin (Neurontin Tab) 600 mg Q8H PO 08/27/16 10:30 08/28/16 02:31 08/27/16 15:36 600 MG Carvedilol (Coreg Tab) 3.125 mg BID PO 08/27/16 09:00 09/26/16 08:59 08/27/16 09:37 3.125 MG Lisinopril (Zestril Tab) 5 mg QAM PO 08/27/16 09:00 09/26/16 08:59 08/27/16 09:37 5 MG Guaifenesin (Mucinex Contr Rel Tab) 600 mg Q12 PO 08/27/16 14:00 09/26/16 13:59 08/27/16 15:36 600 MG Assessment and Plan Assessment and Plan: Pt is a 36 year old male with a history of alcohol abuse who is admitted after having a witnessed alcohol withdrawal seizure on 08/25/16. He has been treated with Librium and Ativan prn per alcohol withdrawal protocol with no further seizure like activity. Fine tremor on exam consistent. Vital signs have been stable. Pt with thrombocytopenia and LFTs are elevated, suggesting alcoholic hepatitis, but improved from yesterday. Lipase is WNL. -Will discontinue Librium and switch to gabapentin and Ativan prn per Psychiatry recommendation. - Hypokalemia and hypomagnesemia have been corrected. Hold potassium at this time and continue to monitor daily BMP. - Continue banana bag. The pt was found to have a new LBBB on EKG upon admission. Subsequent echocardiogram showed a dilated LV with an EF of 25% with moderate to severe MR. Cardiology has seen the pt and believes that these findings are secondary to his heavy alcohol use. - Continue lisinopril 5 mg daily. - Continue Coreg 3.125 mg bid. . - Continue telemetry. - Psychiatry believes that there is a likely underlying Bipolar disorder, which will likely require long-term mood stabilization, but this will be deferred to outpatient rehab/Psychiatry physician. - Plan is for disposition to outpatient rehab once the pt is medically cleared. He lives in the [place] area and will need to arrange for outpatient Psychiatry f/u. - Chronic cough, likely chronic bronchitis given heavy smoking history and productive cough most days for 3 months. - Doubt PNA based on no prior fever or dyspnea and no leukocytosis, but will obtain CXR to further evaluate. - Will Tx with Mucinex.
--- NOTE | 2016-08-27 17:29 | Family Medicine Progress Note ---
Progress Note Date of Service Aug 27, 2016. Subjective Pt evaluation today including: conversation w/ patient, physical exam Pain: None Voiding: no voiding problems No complaints at this time Has had chronic cough for 3 months. Notes extensive smoking history. Requesting a chest x-ray No acute events overnight per nursing. Additional Comments: Review of 10 systems was otherwise negative Medications Current Inpatient Medications Medications (Trade) Dose Ordered Sig/Caleb Route Start Time Stop Time Status Last Admin Dose Admin Acetaminophen (Tylenol Tab) 650 mg Q4H PRN PO 08/26/16 02:30 09/25/16 02:29 Al Hydrox/Mg Hydrox/Simethicone (Maalox Max Susp) 15 ml Q4H PRN PO 08/26/16 02:30 09/25/16 02:29 08/26/16 17:40 15 ML Magnesium Hydroxide (Milk Of Magnesia Susp) 30 ml Q12H PRN PO 08/26/16 02:30 09/25/16 02:29 Zolpidem Tartrate (Ambien Tab) 5 mg HSZ PRN PO 08/26/16 02:30 09/25/16 02:29 Ondansetron HCl (Zofran Inj) 4 mg Q6H PRN IV 08/26/16 02:30 09/25/16 02:29 Polyethylene 17 gm 17 gm DAILY PRN PO 08/26/16 02:30 09/25/16 02:29 Multivitamins/ Thiamine HCl/ Folic Acid/Sodium Chloride (Mvi Infusion Inj/Vitamin B-1 Inj/Folvite Inj/ Nss 1000ml) 1,011.2 ml @ 150 mls/ hr Q24H IV 08/26/16 12:00 09/25/16 11:59 08/27/16 11:48 150 MLS/HR Pantoprazole Sodium (Protonix Tab) 40 mg QAM PO 08/27/16 09:00 09/26/16 08:59 08/27/16 08:12 40 MG Nicotine (Nicoderm Cq 14MG Patch) 1 patch QAM TD 08/27/16 09:00 09/26/16 08:59 08/27/16 08:12 1 PATCH Miscellaneous (Remove Nicoderm Patch) 1 ea HS N/A 08/26/16 21:00 09/25/16 20:59 08/26/16 21:00 1 EA Lorazepam (Ativan Inj) 1 mg Q1H PRN IV 08/26/16 14:00 09/25/16 13:59 08/27/16 15:36 1 MG Gabapentin (Neurontin Tab) 600 mg Q8H PO 08/27/16 10:30 08/28/16 02:31 08/27/16 15:36 600 MG Gabapentin (Neurontin Tab) 600 mg Q12H PO 08/28/16 14:30 08/29/16 02:31 Gabapentin (Neurontin Tab) 600 mg Q24H PO 08/30/16 02:30 08/30/16 02:31 Carvedilol (Coreg Tab) 3.125 mg BID PO 08/27/16 09:00 09/26/16 08:59 08/27/16 09:37 3.125 MG Lisinopril (Zestril Tab) 5 mg QAM PO 08/27/16 09:00 09/26/16 08:59 08/27/16 09:37 5 MG Guaifenesin (Mucinex Contr Rel Tab) 600 mg Q12 PO 08/27/16 14:00 09/26/16 13:59 08/27/16 15:36 600 MG Objective Vital Signs Date Time Temp Pulse Resp B/P Pulse Ox O2 Delivery O2 Flow Rate FiO2 08/27/16 16:00 37.0 88 18 109/68 97 Room Air 08/27/16 16:00 Room Air 08/27/16 12:00 Room Air 08/27/16 11:33 36.5 95 18 130/89 97 Room Air 08/27/16 08:00 Room Air 08/27/16 07:57 36.9 100 18 141/91 97 Room Air 08/27/16 04:00 Room Air 08/27/16 04:00 36.8 88 17 126/86 99 Room Air 08/26/16 23:59 Room Air 08/26/16 23:55 36.6 88 17 125/84 97 Room Air 08/26/16 20:00 Room Air 08/26/16 19:38 36.6 89 18 124/77 96 Physical Exam General Appearance: WD/WN, no apparent distress Eyes: normal inspection, EOMI ENT: hearing grossly normal, pharynx normal Neck: supple, no adenopathy, no JVD Respiratory/Chest: lungs clear, no respiratory distress Cardiovascular: regular rate, rhythm, no gallop, no murmur Abdomen: normal bowel sounds, non tender, + tenderness (mild tenderness at right and left upper quadrants) Extremities: non-tender, no pedal edema Neurologic/Psychiatric: alert, normal mood/affect, oriented x 3 Skin: normal color, warm/dry, no rash Lymphatic: no adenopathy Laboratory Results Last 24 Hours Test 08/27/16 10:10 White Blood Count 7.01 K/uL Red Blood Count 4.15 M/uL Hemoglobin 14.9 g/dL Hematocrit 41.9 % Mean Corpuscular Volume 101.0 fL Mean Corpuscular Hemoglobin 35.9 pg Mean Corpuscular Hemoglobin Concent 35.6 g/dl RDW Standard Deviation 49.9 fL RDW Coefficient of Variation 13.4 % Platelet Count 100 K/uL Mean Platelet Volume 10.6 fL Sodium Level 137 mmol/L Potassium Level 3.8 mmol/L Chloride Level 102 mmol/L Carbon Dioxide Level 24 mmol/L Anion Gap 11.0 mmol/L Blood Urea Nitrogen 6 mg/dl Creatinine 0.73 mg/dl Est Creatinine Clear Calc Drug Dose 156.5 ml/min Estimated GFR () 137.3 Estimated GFR (Non- 118.5 BUN/Creatinine Ratio 7.7 Random Glucose 89 mg/dl Calcium Level 9.3 mg/dl Phosphorus Level 1.7 mg/dl Magnesium Level 2.1 mg/dl Total Bilirubin 2.1 mg/dl Aspartate Amino Transf (AST/SGOT) 177 U/L Alanine Aminotransferase (ALT/SGPT) 153 U/L Alkaline Phosphatase 111 U/L Total Protein 6.7 gm/dl Albumin 3.4 gm/dl Globulin 3.3 gm/dl Albumin/Globulin Ratio 1.0 Assessment and Plan Patient presents with seizures related to alcohol withdrawal. Echocardiogram remarkable for reduced EF 25-30. Suggestive of alcohol-related cardiomyopathy Patient doing well at this time. No complaints. Our plan for him is as follows: Alcoholic Cardiomyopathy - New LBBB prompting echocardiogram. Reduced EF 25-30%. The following medications have been started. These should continue to be titrated up as tolerated by the patient Coreg Lisinopril - New diagnosis - Alcohol cessation reviewed with patient. Patient desires starting a rehabilitation program after discharge. - Cardiology recommendations appreciated Patient may require establishing with cardiology service in [place], where he currently resides If patient able to stop alcohol, would be helpful to clarify when a repeat echocardiogram might be appropriate for surveillance Chronic Cough with Tobacco Abuse - Nicotine Patch - Smoking cessation counselling - CXR normal - Start Mucinex to improve expectoration Chronic Ethanol Abuse - Patient has elevated transaminases at this time. Librium would not be appropriate in this setting - Lorazepam 1 mg q hourly - Continue Gabapentin taper - Continue Multivitamin/Thiamine/Folate - Abdo US: no evidence of cirrhosis, has fatty liver Transaminitis - Likely secondary to ethanol intake Alcohol Withdrawal Seizures - No seizures since admission - Electrolytes normalized Bipolar Depression - Currently not on any medications - Per psych, gabapentin may provide mood stabilizing effects. Continue for now. - Appreciate psychiatry recommendations Hypokalemia - Improved to 3.8 today Hypomagnesemia - Mag improved to 2.1 Thrombocytopenia - Improved from 84 to 100 Code Status - Level I Code Disposition - Telemetry Reviewed: Pt Seen/Exam by Me History just has some tremors. otherwise doing well Constitutional: denies: fever Respiratory: negative: short of breath Cardiovascular: denies chest pain Gastrointestinal/Abdominal: negative: abdominal pain General Appearance: no apparent distress Respiratory: lungs clear, no respiratory distress Cardiovascular: regular rate, rhythm Gastrointestinal: normal bowel sounds, soft, tenderness (mild upper abdomen) Neurologic/Psychiatric: alert, oriented x 3, other (tremors in hands) Skin Characteristics: warm/dry Assessment/Plan I have reviewed the medical record and performed a history and physical examination of this patient today. I have discussed the case with Dr. Ron. The above note reflects my findings, conclusions, and recommendations.
[2016-08-27] MEDS ORDERED: POTASSIUM PHOS 3 MMOL/1 ML INFUSION IV STA (19:09)
[2016-08-27] MEDS ORDERED: POTASSIUM PHOSPHATE INJ 21 MMOL in SODIUM CHLORIDE 0.9% 500ML 500 ML IV ONE (19:30)
[2016-08-27 20:00] VITALS: BP 120/72; PULSE 98; TEMP 36.5; O2SAT 97
[2016-08-28] VITALS (7 sets, daily range): BP systolic 107–123; BP diastolic 66–79; PULSE 81–129; TEMP 36.5–36.8; O2SAT 95–99
[2016-08-28] MEDS: GABAPENTIN 600MG Q8H DOSE PO SCH (02:09)
[2016-08-28] MEDS: LORAZEPAM 2 MG/ML 1 ML VIAL IV PRN ×2 (03:24→22:16)
[2016-08-28 06:24] LABS: HEMATOCRIT 38.1 % (42-52); MEAN CELL VOLUME 104.1 fL (80-100); MEAN CORPUSCULAR HEMOGLOBIN 35.8 pg (25-34); MEAN CORPUSCULAR HGB CONC 34.4 g/dl (32-36); RED BLOOD COUNT 3.66 M/uL (4.7-6.1); WHITE BLOOD COUNT 4.48 K/uL (4.8-10.8)
[2016-08-28 06:25] LABS: MEAN PLATELET VOLUME 10.7 fL (7.4-10.4); PLATELET COUNT 89 K/uL (130-400)
[2016-08-28 06:55] LABS: BUN/CREATININE RATIO 13.8 (10-20); CALCIUM 8.8 mg/dl (8.5-10.1); CREATININE 0.79 mg/dl (0.60-1.40); MAGNESIUM 2.1 mg/dl (1.8-2.4)
[2016-08-28 07:00] LABS: ALB/GLOB RATIO 1.1 (0.9-2); PHOSPHORUS 4.1 mg/dl (2.5-4.9)
[2016-08-28] MEDS: PANTOprazole SOD 40 MG TAB PO SCH (07:56)
[2016-08-28] MEDS: LISINOPRIL 5 MG TAB PO SCH (07:56)
[2016-08-28] MEDS: CARVEDILOL 3.125 MG TAB PO SCH (07:56)
[2016-08-28] MEDS: GUAIFENESIN 600 MG TABCR PO SCH ×2 (07:56→22:16)
[2016-08-28] MEDS: NICOTINE 14 MG/24 HR TDSY TD SCH (07:57)
[2016-08-28 08:13] LABS: REFERENCE QUEST TEST REPORT
[2016-08-28] MEDS ORDERED: CARVEDILOL 3.125 MG TAB PO ONE ×2 (09:01→09:15)
[2016-08-28] MEDS: THIAMINE HCL INJ 100 MG in SYRINGE 9 ML IV SCH (09:26)
[2016-08-28] MEDS: MULTIVITAMIN TAB PO SCH (09:26)
[2016-08-28] MEDS: FoLIC ACID INJ 1 MG in SYRINGE 9.8 ML IV SCH (09:26)
--- NOTE | 2016-08-28 09:44 | CARDIOLOGY PROGRESS NOTE ---
DATE: 08/28/2016 HISTORY OF PRESENT ILLNESS: Mr. Montana is a 36-year-old alcoholic white male who was admitted on 08/26/2016 following a tonic-clonic seizure secondary to acute alcohol withdrawal/DTs. He was noted to have a left bundle-branch block on admission which was a new diagnosis. Ultimately, he had an echocardiogram done which showed a severely reduced LV systolic function, LVEF 25% to 30% with severe global hypokinesis, moderate to severe MR. We initially met with the patient yesterday, he was started on Coreg 3.125 mg b.i.d. and lisinopril 5 mg daily. Thus far, he is tolerating these medications without adverse side effects. He offers no complaints. He is somewhat anxious, but attributes that to underlying anxiety and the fact that he is withdrawing from alcohol. He denies any chest pain, heaviness, tightness or pressure. Denies any neck, jaw, back, or arm pain. No shortness of breath, dyspnea on exertion, orthopnea or PND. He still feels mildly lightheaded from time to time but is sitting around a lot. He has not had any syncope. No further seizure activity. PHYSICAL EXAMINATION: VITAL SIGNS: Temperature is 36.8 degrees Celsius, pulse is 98 and regular, respiratory rate is 18 and unlabored, blood pressure is 115/67, SpO2 is 98% on room air. GENERAL: The patient is in no acute distress. HEENT: Head is atraumatic, normocephalic. EOMs intact. Sclerae are anicteric. Face is symmetric. No perioral cyanosis. Mucous membranes are moist. NECK: Without thyromegaly, adenopathy or JVD. Carotid upstrokes +2 bilaterally without bruits. CHEST AND LUNGS: Clear to auscultation throughout all lung suazo, no wheezes, rales or rhonchi. CARDIOVASCULAR: S1 and S2 are regular with a grade 1/6 apical holosystolic murmur. No diastolic murmurs appreciated. No obvious gallops or rubs. PMI is laterally displaced. No lifts, heaves, or thrills. ABDOMINAL EXAM: Bowel sounds present. No masses, organomegaly or tenderness. EXTREMITIES: No clubbing, cyanosis or edema. NEUROLOGIC: The patient is awake, alert and oriented. Pleasant and cooperative. Answers questions appropriately. Speech is clear. Normal movement in all 4 extremities. Telemetry monitoring shows sinus rhythm to sinus tachycardia with an LBBB pattern. ASSESSMENT: 1. Cardiomyopathy, left ventricular ejection fraction 25% to 30%, likely alcoholic versus idiopathic. 2. Moderate to severe mitral regurgitation, likely secondary to left ventricular dilatation and stretching of the mitral annulus. 3. Newly diagnosed left bundle-branch block -- secondary to problem #1. 4. Alcoholism with acute alcohol withdrawal. 5. Delirium tremens/witnessed tonic-clonic seizure activity prior to admission. 6. Probable bipolar disorder. 7. Nicotine dependence. PLAN: 1. Thus far patient is doing reasonably well. He remains stable from a cardiac standpoint, although he is tachycardic much of the time. 2. Recommend increasing Coreg to 6.25 mg b.i.d. 3. Continue lisinopril 5 mg daily. 4. Continue to monitor daily laboratories. 5. Stressed the importance of alcohol and nicotine abstinence. 6. His family is very involved, and they are all actively involved in getting a plan for a alcohol/drug rehab facility. 7. Would recommend repeating an echocardiogram in approximately 3 months-- typically 3 months after he is on the maximum tolerated doses of Coreg and lisinopril. 8. We will continue to follow along while hospitalized and if he remains in the area we will follow up with him as an outpatient within the next 1-2 weeks after discharge. CHIN
[2016-08-28] MEDS: GABAPENTIN 600MG Q12H DOSE PO SCH ×2 (14:43→22:24)
--- NOTE | 2016-08-28 16:39 | Family Medicine Progress Note ---
Progress Note Date of Service Aug 28, 2016. Subjective Pt evaluation today including: conversation w/ patient, physical exam Pain: None PO Intake: Good Voiding: no voiding problems, no incontinence Denies any pain at this time Had some difficulty sleeping last night. Having some underlying anxiety regarding new CHF diagnosis and how he would fare in rehab. Continues to be motivated to go inpatient rehabilitation therapy No chest pain, palpitations, shortness of breath or syncope over 24 hours. Additional Comments: review of systems otherwise negative. Medications Current Inpatient Medications Medications (Trade) Dose Ordered Sig/Caleb Route Start Time Stop Time Status Last Admin Dose Admin Acetaminophen (Tylenol Tab) 650 mg Q4H PRN PO 08/26/16 02:30 09/25/16 02:29 Al Hydrox/Mg Hydrox/Simethicone (Maalox Max Susp) 15 ml Q4H PRN PO 08/26/16 02:30 09/25/16 02:29 08/26/16 17:40 15 ML Magnesium Hydroxide (Milk Of Magnesia Susp) 30 ml Q12H PRN PO 08/26/16 02:30 09/25/16 02:29 Zolpidem Tartrate (Ambien Tab) 5 mg HSZ PRN PO 08/26/16 02:30 09/25/16 02:29 Ondansetron HCl (Zofran Inj) 4 mg Q6H PRN IV 08/26/16 02:30 09/25/16 02:29 Polyethylene (Miralax Powder Packet) 17 gm DAILY PRN PO 08/26/16 02:30 09/25/16 02:29 Pantoprazole Sodium (Protonix Tab) 40 mg QAM PO 08/27/16 09:00 09/26/16 08:59 08/28/16 07:56 40 MG Nicotine (Nicoderm Cq 14MG Patch) 1 patch QAM TD 08/27/16 09:00 09/26/16 08:59 08/28/16 07:57 1 PATCH Miscellaneous (Remove Nicoderm Patch) 1 ea HS N/A 08/26/16 21:00 09/25/16 20:59 08/27/16 21:00 1 EA Lorazepam (Ativan Inj) 1 mg Q1H PRN IV 08/26/16 14:00 09/25/16 13:59 08/28/16 03:24 1 MG Gabapentin (Neurontin Tab) 600 mg Q12H PO 08/28/16 14:30 08/29/16 02:31 08/28/16 14:43 600 MG Gabapentin (Neurontin Tab) 600 mg Q24H PO 08/30/16 02:30 08/30/16 02:31 Lisinopril (Zestril Tab) 5 mg QAM PO 08/27/16 09:00 09/26/16 08:59 08/28/16 07:56 5 MG Guaifenesin 600 mg 600 mg Q12 PO 08/27/16 14:00 09/26/16 13:59 08/28/16 07:56 600 MG Folic Acid 1 mg/ Syringe 10 ml @ 5 mls/min QAM IV 08/28/16 09:00 09/27/16 08:59 08/28/16 09:26 5 MLS/MIN Thiamine HCl/ Syringe (Vitamin B-1 Inj/ Syringe) 10 ml @ 2 mls/min QAM IV 08/28/16 09:00 09/27/16 08:59 08/28/16 09:26 2 MLS/MIN Multivitamins (Multivitamin Tab) 1 tab QAM PO 08/28/16 09:00 09/27/16 08:59 08/28/16 09:26 1 TAB Carvedilol (Coreg Tab) 6.25 mg BID PO 08/28/16 21:00 09/27/16 20:59 Objective Vital Signs Date Time Temp Pulse Resp B/P Pulse Ox O2 Delivery O2 Flow Rate FiO2 08/28/16 16:16 36.6 129 20 123/75 97 08/28/16 12:00 Room Air 08/28/16 11:00 36.8 85 18 107/66 95 08/28/16 08:00 Room Air 08/28/16 04:00 36.8 81 18 115/67 98 Room Air 08/28/16 04:00 98 Room Air 08/28/16 00:00 99 Room Air 08/28/16 00:00 36.6 92 17 115/73 99 Room Air 08/27/16 20:00 97 Room Air 08/27/16 20:00 36.5 98 20 120/72 97 Room Air Physical Exam General Appearance: WD/WN, no apparent distress, + pertinent finding (mildly plethora of the face) Eyes: PERRL, EOMI, + pertinent finding (no jaundice) ENT: hearing grossly normal, pharynx normal Neck: supple, no adenopathy, no JVD Respiratory/Chest: lungs clear, no respiratory distress Cardiovascular: regular rate, rhythm, no gallop, no murmur Abdomen: normal bowel sounds, soft, + pertinent finding (mild RUQ and LUQ tenderness; no rebound or rigidity) Extremities: non-tender, no pedal edema Neurologic/Psychiatric: alert, oriented x 3 Skin: normal color, warm/dry, no rash Lymphatic: no adenopathy Laboratory Results Last 24 Hours Test 08/27/16 23:43 08/28/16 05:15 Phosphorus Level 4.3 mg/dl 4.1 mg/dl White Blood Count 4.48 K/uL Red Blood Count 3.66 M/uL Hemoglobin 13.1 g/dL Hematocrit 38.1 % Mean Corpuscular Volume 104.1 fL Mean Corpuscular Hemoglobin 35.8 pg Mean Corpuscular Hemoglobin Concent 34.4 g/dl RDW Standard Deviation 52.5 fL RDW Coefficient of Variation 13.7 % Platelet Count 89 K/uL Mean Platelet Volume 10.7 fL Sodium Level 140 mmol/L Potassium Level 4.0 mmol/L Chloride Level 104 mmol/L Carbon Dioxide Level 27 mmol/L Anion Gap 9.0 mmol/L Blood Urea Nitrogen 11 mg/dl Creatinine 0.79 mg/dl Est Creatinine Clear Calc Drug Dose 144.7 ml/min Estimated GFR () 133.0 Estimated GFR (Non- 114.7 BUN/Creatinine Ratio 13.8 Random Glucose 100 mg/dl Calcium Level 8.8 mg/dl Magnesium Level 2.1 mg/dl Total Bilirubin 1.2 mg/dl Aspartate Amino Transf (AST/SGOT) 103 U/L Alanine Aminotransferase (ALT/SGPT) 116 U/L Alkaline Phosphatase 95 U/L Total Protein 6.0 gm/dl Albumin 3.2 gm/dl Globulin 2.8 gm/dl Albumin/Globulin Ratio 1.1 Vitamin B12 Level 413 pg/mL Folate 13.51 ng/mL Assessment and Plan Pleasant 36 year old gentleman with alcohol withrawal seizures and new diagnosis of alcoholic cardiomyopathy Doing well at this time. No events overnight. Does express anxiety regarding his new diagnosis and path towards sobriety. Our plan for him is as follows: Alcoholic Cardiomyopathy - New LBBB prompting echocardiogram. Reduced EF 25-30%. The following medications have been started. These should continue to be titrated up as tolerated by the patient Coreg has been titrated to 6 mg daily Lisinopril remains at 5 mg BID - Pneumococcal vaccine (PPSV 23) given today - Alcohol cessation reviewed with patient. Awaiting acceptance for inpatient rehabilitation. - Cardiology recommendations appreciated Will continue to follow Recommend titrating meds to maximum tolerated If local, would see patient as outpatient 1-2 weeks after discharge Will require follow-up echocardiogram 3 months after on maximally tolerated medical therapy Chronic Cough with Tobacco Abuse - Continue Nicotine Patch - Smoking cessation counselling - CXR within normal limits - Continue Mucinex Chronic Ethanol Abuse - Continue Lorazepam 1 mg q hourly for anxiety - Continue Gabapentin taper - Continue Multivitamin/Thiamine/Folate. Have discontinued Banana bag to avoid fluid overload Will give IV doses of Thiamin and Folate PO multivitamin - Abdo US: no evidence of cirrhosis, has fatty liver Transaminitis - Likely secondary to ethanol intake; continues to improve - Repeat x 1 then scale back to BMP only Alcohol Withdrawal Seizures - Seizure free > 24 hours - Electrolytes normalized Bipolar Depression - Currently not on any medications - Per psych, gabapentin may provide mood stabilizing effects. Continue for now. - Appreciate psychiatry recommendations Hypokalemia - Resolved; at 4 today Hypomagnesemia - Called last night about Mag 1.7 -- administered 21 mmol KPhos Mag improved today to 2.1 Thrombocytopenia - Currently 89; no evidence of active bleeding - Likely related to chronic alcohol consumption Code Status - Level I Code Disposition - Telemetry - Awaiting acceptance for inpatient rehabilitation Continued [facility] stay due to: other (awaiting direct admission for inpatient rehabilitation) Discharge planning: rehab hospital Reviewed: Pt Seen/Exam by Me History feeling upset that he got mad at his mom and brother when they were visiting today. Constitutional: denies: fever Respiratory: negative: short of breath Cardiovascular: denies chest pain General Appearance: no apparent distress Respiratory: lungs clear, no respiratory distress Cardiovascular: regular rate, rhythm Gastrointestinal: normal bowel sounds, soft Neurologic/Psychiatric: alert, oriented x 3 Skin Characteristics: warm/dry Assessment/Plan I have reviewed the medical record and performed a history and physical examination of this patient today. I have discussed the case with Dr. Ron. The above note reflects my findings, conclusions, and recommendations. Awaiting placement to inpatient [facility].
[2016-08-28] MEDS: CARVEDILOL 6.25 MG TAB PO SCH (22:16)
[2016-08-29 04:00] VITALS: BP 101/64; PULSE 101; TEMP 36.7; O2SAT 99
[2016-08-29] MEDS: LORAZEPAM 2 MG/ML 1 ML VIAL IV PRN (04:01)
[2016-08-29 04:29] LABS: HEMATOCRIT 38.1 % (42-52); MEAN CELL VOLUME 104.4 fL (80-100); MEAN CORPUSCULAR HEMOGLOBIN 35.6 pg (25-34); MEAN CORPUSCULAR HGB CONC 34.1 g/dl (32-36); MEAN PLATELET VOLUME 10.5 fL (7.4-10.4); PLATELET COUNT 106 K/uL (130-400); RED BLOOD COUNT 3.65 M/uL (4.7-6.1); WHITE BLOOD COUNT 4.69 K/uL (4.8-10.8)
[2016-08-29 04:57] LABS: BUN/CREATININE RATIO 14.3 (10-20); CREATININE 0.84 mg/dl (0.60-1.40); POTASSIUM 3.9 mmol/L (3.5-5.1)
[2016-08-29 05:00] LABS: ALB/GLOB RATIO 1.2 (0.9-2); PHOSPHORUS 4.6 mg/dl (2.5-4.9)
[2016-08-29 07:29] VITALS: BP 132/87; PULSE 91; TEMP 36.9; O2SAT 99
[2016-08-29] MEDS: FoLIC ACID INJ 1 MG in SYRINGE 9.8 ML IV SCH (09:05)
[2016-08-29] MEDS: THIAMINE HCL INJ 100 MG in SYRINGE 9 ML IV SCH (09:05)
[2016-08-29] MEDS: GUAIFENESIN 600 MG TABCR PO SCH ×2 (09:05→22:15)
[2016-08-29] MEDS: PANTOprazole SOD 40 MG TAB PO SCH (09:06)
[2016-08-29] MEDS: CARVEDILOL 6.25 MG TAB PO SCH ×2 (09:06→22:15)
[2016-08-29] MEDS: MULTIVITAMIN TAB PO SCH (09:06)
[2016-08-29] MEDS: LISINOPRIL 5 MG TAB PO SCH (09:07)
[2016-08-29] MEDS: NICOTINE 14 MG/24 HR TDSY TD SCH (09:07)
[2016-08-29] MEDS ORDERED: PNEUMOCOCCAL ADMINISTRATION CHARGE ONE (09:15)
[2016-08-29] MEDS ORDERED: PNEUMOCOCCAL POLYSACCHARIDES 25 MCG/0.5 ML VIAL/SYR IM. ONE (09:15)
[2016-08-29 11:23] VITALS: BP 118/68; PULSE 102; TEMP 36.7; O2SAT 97
[2016-08-29 11:56] VITALS: BP 118/68; PULSE 102; TEMP 36.7; O2SAT 97
--- NOTE | 2016-08-29 12:40 | CARDIOLOGY PROGRESS NOTE ---
DATE: 08/29/2016 SUBJECTIVE: Mr. Montana is resting comfortably in the bedside chair without complaints of chest pain or dyspnea. He was able to sleep completely supine last evening. OBJECTIVE: VITAL SIGNS: Blood pressure 118/60 with a regular pulse of 90. Respiratory rate is 20. The patient is afebrile at 36.7 degrees Celsius. Saturations 97% on room air. NECK: Supple with full carotid upstrokes. There are no carotid bruits. Jugular venous pressure is flat at 90 degrees. There is no thyromegaly. CARDIOVASCULAR: Reveals a regular rhythm with distant heart sounds. No obvious murmurs. No S3. LUNGS: Clear without rales, rhonchi, or wheezes. ABDOMEN: Soft, nontender without bruits. EXTREMITIES: Reveal intact radial artery pulses bilaterally. There is no peripheral edema. DATA: CBC notes hemoglobin of 13.0, hematocrit 38.1, white count 4.6, platelet count 106,000. Electrolytes note a sodium of 141, potassium 3.9, chloride 105, bicarb 28, BUN 12, creatinine 0.84, glucose 98. monitor technician is benign. IMPRESSION AND PLAN: 1. Left ventricular dysfunction -- likely represents an alcoholic cardiomyopathy. Currently compensated at this time. 2. Moderate to severe mitral regurgitation -- likely secondary to dilatation of the mitral annulus. 3. Left bundle branch block -- secondary to #1. 4. Acute alcohol withdrawal. 5. Bipolar disorder. 6. Disposition -- stable for transfer to the floor.
[2016-08-29 12:57] VITALS: BP 112/72; PULSE 92; TEMP 36.4; O2SAT 97
[2016-08-29] MEDS ORDERED: LORAZEPAM 1 MG TAB PO PRN (13:00)
--- NOTE | 2016-08-29 13:00 | Medical Student: [facility] ---
Med Student Progress Note Date of Service Aug 29, 2016. Subjective Pt evaluation today including: conversation w/ patient, physical exam, chart review, lab review, review of studies Voiding: no voiding problems Pt is a 36 year old male with a history of alcohol abuse who is admitted after having a witnessed alcohol withdrawal seizure on 08/25/16. He has been feeling much improved and was able to sleep 6 hours last night and has eaten well. He has had no further seizure-like activity since then. He c/o anxiety and depression. His tremor in his hands has improved. He denies hallucinations. No abd pain, nausea, vomiting, diarrhea, constipation. He mentioned one episode of hematemesis about one month ago, during which he vomited about 1/2 cup of blood. He c/o chronic heartburn, but has had no further hematemesis since then. He has also noted occasional dark stools. He also c/o a chronic cough, which he has had for the last 3 months with occasional yellow sputum production. 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 Review of Systems Constitutional: + see HPI Respiratory: + see HPI Cardiac: No chest pain Abdomen: + see HPI Psychiatric: + see HPI All Other Systems: Reviewed and Negative Review of Systems Constitutional: No fever Objective Vital Signs Date Time Temp Pulse Resp B/P Pulse Ox O2 Delivery O2 Flow Rate FiO2 08/29/16 12:00 Room Air 08/29/16 11:56 36.7 102 20 97 08/29/16 11:23 36.7 102 20 118/68 97 Room Air 08/29/16 08:00 Room Air 08/29/16 07:29 36.9 91 20 132/87 99 Room Air 08/29/16 04:00 99 Room Air 08/29/16 04:00 36.7 101 22 101/64 99 Room Air 08/28/16 23:59 95 Room Air 08/28/16 23:59 36.8 89 20 118/74 95 Room Air 08/28/16 20:00 96 Room Air 08/28/16 19:36 36.5 90 18 114/79 96 08/28/16 16:16 36.6 129 20 123/75 97 08/28/16 16:00 Room Air Physical Exam General Appearance: WD/WN, no apparent distress, + pertinent finding (Pt appears somewhat anxious. Mild hand tremor noted. ) Eyes: bilateral eyes EOMI, bilateral eyes PERRL ENT: hearing grossly normal Neck: no JVD Respiratory/Chest: chest non-tender, lungs clear, normal breath sounds, no respiratory distress, no accessory muscle use Cardiovascular: regular rate, rhythm, no edema, no gallop, no JVD, no murmur, + pertinent finding (PMI within mid-clavicular line. Distant heart sounds. 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, no motor/sensory deficits, alert, oriented x 3 Skin: normal color, warm/dry, no rash Laboratory Results Last 24 Hours Test 08/29/16 04:08 White Blood Count 4.69 K/uL Red Blood Count 3.65 M/uL Hemoglobin 13.0 g/dL Hematocrit 38.1 % Mean Corpuscular Volume 104.4 fL Mean Corpuscular Hemoglobin 35.6 pg Mean Corpuscular Hemoglobin Concent 34.1 g/dl RDW Standard Deviation 52.0 fL RDW Coefficient of Variation 13.7 % Platelet Count 106 K/uL Mean Platelet Volume 10.5 fL Sodium Level 141 mmol/L Potassium Level 3.9 mmol/L Chloride Level 105 mmol/L Carbon Dioxide Level 28 mmol/L Anion Gap 8.0 mmol/L Blood Urea Nitrogen 12 mg/dl Creatinine 0.84 mg/dl Est Creatinine Clear Calc Drug Dose 136.0 ml/min Estimated GFR () 129.6 Estimated GFR (Non- 111.9 BUN/Creatinine Ratio 14.3 Random Glucose 98 mg/dl Calcium Level 9.0 mg/dl Phosphorus Level 4.6 mg/dl Magnesium Level 2.0 mg/dl Total Bilirubin 1.5 mg/dl Aspartate Amino Transf (AST/SGOT) 76 U/L Alanine Aminotransferase (ALT/SGPT) 106 U/L Alkaline Phosphatase 85 U/L Total Protein 6.5 gm/dl Albumin 3.5 gm/dl Globulin 3.0 gm/dl Albumin/Globulin Ratio 1.2 Medications Medications Administered Medications (Trade) Dose Ordered Sig/Caleb Route Start Time Stop Time Status Last Admin Dose Admin Chlordiazepoxide 50 mg 50 mg NOW ONCE PO 08/25/16 23:45 08/25/16 23:46 DC 08/25/16 23:45 50 MG Sodium Chloride 1,000 ml @ 999 mls/hr Q1H1M STAT IV 08/25/16 23:40 08/26/16 00:40 DC 08/25/16 23:51 999 MLS/HR Sodium Chloride 1,000 ml @ 250 mls/hr Q4H STAT IV 08/25/16 23:40 08/26/16 03:39 DC 08/25/16 23:51 250 MLS/HR Multivitamins/ Thiamine HCl/ Folic Acid/Sodium Chloride (Mvi Infusion Inj/Vitamin B-1 Inj/Folvite Inj/ Nss 1000ml) 1,011.2 ml @ 250 mls/ hr Q4H3M STAT IV 08/25/16 23:47 08/26/16 03:49 DC 08/26/16 00:04 250 MLS/HR Potassium Chloride (Kcl 10 Meq / Wtr) 10 meq NOW STAT IV 08/26/16 01:48 08/26/16 01:49 DC 08/26/16 04:39 10 MEQ Magnesium Sulfate (Magnesium Sulfate) 1 gm NOW STAT IV 08/26/16 01:48 08/26/16 01:49 DC 08/26/16 02:18 1 GM Al Hydrox/Mg Hydrox/ Simethicone 15 ml 15 ml Q4H PRN PO 08/26/16 02:30 09/25/16 02:29 08/26/16 17:40 15 ML Multivitamins 10 ml/Thiamine HCl 100 mg/Folic Acid 1 mg/Sodium Chloride 1,011.2 ml @ 150 mls/ hr Q24H IV 08/26/16 12:00 08/28/16 08:35 DC 08/27/16 11:48 150 MLS/HR Potassium Chloride/Dextrose/ Sod Cl (D5nss + 20meq KCl) 1,000 ml @ 125 mls/hr Q8H IV 08/26/16 04:30 08/27/16 01:56 DC 08/26/16 16:51 125 MLS/HR Chlordiazepoxide (Librium Cap) 10 mg Q8H PO 08/26/16 04:00 08/26/16 09:17 DC 08/26/16 04:24 10 MG Lorazepam (Ativan Inj) 2 mg Q3H PRN IV 08/26/16 02:30 08/26/16 09:37 DC 08/26/16 07:47 2 MG Influenza Virus Vaccine Quadrival (Flu Vaccine) 0.5 ml ONCE ONCE IM. 08/26/16 04:15 08/26/16 04:28 DC 08/29/16 09:04 0.5 ML Chlordiazepoxide (Librium Cap) 25 mg Q8H PO 08/26/16 12:00 08/26/16 14:03 DC 08/26/16 11:07 25 MG Pantoprazole Sodium (Protonix Tab) 40 mg QAM PO 08/27/16 09:00 09/26/16 08:59 08/29/16 09:06 40 MG Nicotine (Nicoderm Cq 14MG Patch) 1 patch QAM TD 08/27/16 09:00 09/26/16 08:59 08/29/16 09:07 1 PATCH Miscellaneous (Remove Nicoderm Patch) 1 ea HS N/A 08/26/16 21:00 09/25/16 20:59 08/28/16 21:00 1 EA Pantoprazole Sodium (Protonix Tab) 40 mg NOW ONCE PO 08/26/16 11:15 08/26/16 11:16 DC 08/26/16 11:50 40 MG Nicotine (Nicoderm Cq 14MG Patch) 1 patch NOW ONCE TD 08/26/16 11:15 08/26/16 11:16 DC 08/26/16 11:51 1 PATCH Lorazepam (Ativan Inj) 1 mg Q1H PRN IV 08/26/16 14:00 09/25/16 13:59 08/29/16 04:01 1 MG Gabapentin (Neurontin Tab) 1,200 mg TODAY@1430 ONCE PO 08/26/16 14:30 08/26/16 14:32 DC 08/26/16 14:38 1,200 MG Gabapentin (Neurontin Tab) 600 mg Q6H PO 08/26/16 20:30 08/27/16 02:31 DC 08/27/16 03:35 600 MG Gabapentin (Neurontin Tab) 600 mg Q8H PO 08/27/16 10:30 08/28/16 02:31 DC 08/28/16 02:09 600 MG Gabapentin (Neurontin Tab) 600 mg Q12H PO 08/28/16 14:30 1/11/17 02:31 DC 08/28/16 22:24 600 MG Carvedilol (Coreg Tab) 3.125 mg BID PO 08/27/16 09:00 08/28/16 09:03 DC 08/28/16 07:56 3.125 MG Lisinopril (Zestril Tab) 5 mg QAM PO 08/27/16 09:00 09/26/16 08:59 08/29/16 09:07 5 MG Guaifenesin 600 mg 600 mg Q12 PO 08/27/16 14:00 09/26/16 13:59 08/29/16 09:05 600 MG Potassium Phosphate 21 mmol/ Sodium Chloride 507 ml @ 144.857 mls/hr TODAY@1930 ONCE IV 08/27/16 19:30 08/27/16 22:59 DC 08/27/16 19:44 144.857 MLS/HR Folic Acid 1 mg/ Syringe 10 ml @ 5 mls/min QAM IV 08/28/16 09:00 08/29/16 11:51 DC 08/29/16 09:05 5 MLS/MIN Thiamine HCl/ Syringe (Vitamin B-1 Inj/ Syringe) 10 ml @ 2 mls/min QAM IV 08/28/16 09:00 08/29/16 11:51 DC 08/29/16 09:05 2 MLS/MIN Multivitamins (Multivitamin Tab) 1 tab QAM PO 08/28/16 09:00 09/27/16 08:59 08/29/16 09:06 1 TAB Carvedilol (Coreg Tab) 6.25 mg BID PO 08/28/16 21:00 09/27/16 20:59 08/29/16 09:06 6.25 MG Carvedilol (Coreg Tab) 3.125 mg NOW ONCE PO 08/28/16 09:15 08/28/16 09:16 DC 08/28/16 09:25 3.125 MG Assessment and Plan Assessment and Plan: Pt is a 36 year old male with a history of alcohol abuse who is admitted after having a witnessed alcohol withdrawal seizure on 08/25/16. He has been treated with Gabapentin and Ativan prn per alcohol withdrawal protocol with no further seizure like activity. He has required less Ativan and appears to be improving from his acute withdrawal episode. Fine tremor on exam. Vital signs have been stable. Thrombocytopenia and LFTs improved. -Continue gabapentin and Ativan prn per Psychiatry recommendation. - Hypokalemia and hypomagnesemia have been corrected. Continue to monitor daily BMP. - Will switch IV folic acid and thiamine to PO. The pt was found to have a new LBBB on EKG upon admission. Subsequent echocardiogram showed a dilated LV with an EF of 25% with moderate to severe MR. Cardiology has seen the pt and believes that these findings are secondary to his heavy alcohol use. - Continue lisinopril 5 mg daily. - Continue Coreg 3.125 mg bid. - As HR and BP have been stable, will discontinue telemetry and transfer the pt to med/surg floor. - Psychiatry believes that there is a likely underlying Bipolar disorder, which will likely require long-term mood stabilization, but this will be deferred to outpatient rehab/Psychiatry physician. - Plan is for disposition to outpatient rehab once the pt is medically cleared. He lives in the [place] area and will need to arrange for outpatient Psychiatry f/u. - Chronic cough, likely chronic bronchitis given heavy smoking history and productive cough most days for 3 months. - CXR shows no acute process. - Will Tx with Mucinex. Continued [facility] stay due to: other (awaiting direct admission for inpatient rehabilitation)
--- NOTE | 2016-08-29 13:06 | Family Medicine Progress Note ---
Progress Note Date of Service Aug 29, 2016. Subjective Pt evaluation today including: conversation w/ patient, physical exam, chart review, lab review Pain: None PO Intake: Good Voiding: no voiding problems, no incontinence Doing well this mornign No chest pain, SOB, palpitations Did with some anxiety overnight regarding path forward No events on monitor No other issues overnight Additional Comments: Review of systems otherwise negative. Medications Current Inpatient Medications Medications (Trade) Dose Ordered Sig/Caleb Route Start Time Stop Time Status Last Admin Dose Admin Acetaminophen (Tylenol Tab) 650 mg Q4H PRN PO 08/26/16 02:30 09/25/16 02:29 Al Hydrox/Mg Hydrox/Simethicone (Maalox Max Susp) 15 ml Q4H PRN PO 08/26/16 02:30 09/25/16 02:29 08/26/16 17:40 15 ML Magnesium Hydroxide (Milk Of Magnesia Susp) 30 ml Q12H PRN PO 08/26/16 02:30 09/25/16 02:29 Zolpidem Tartrate (Ambien Tab) 5 mg HSZ PRN PO 08/26/16 02:30 09/25/16 02:29 Ondansetron HCl (Zofran Inj) 4 mg Q6H PRN IV 08/26/16 02:30 09/25/16 02:29 Polyethylene (Miralax Powder Packet) 17 gm DAILY PRN PO 08/26/16 02:30 09/25/16 02:29 Pantoprazole Sodium (Protonix Tab) 40 mg QAM PO 08/27/16 09:00 09/26/16 08:59 08/29/16 09:06 40 MG Nicotine (Nicoderm Cq 14MG Patch) 1 patch QAM TD 08/27/16 09:00 09/26/16 08:59 08/29/16 09:07 1 PATCH Miscellaneous (Remove Nicoderm Patch) 1 ea HS N/A 08/26/16 21:00 09/25/16 20:59 08/28/16 21:00 1 EA Gabapentin (Neurontin Tab) 600 mg Q24H PO 08/30/16 02:30 08/30/16 02:31 Lisinopril (Zestril Tab) 5 mg QAM PO 08/27/16 09:00 09/26/16 08:59 08/29/16 09:07 5 MG Guaifenesin (Mucinex Contr Rel Tab) 600 mg Q12 PO 08/27/16 14:00 09/26/16 13:59 08/29/16 09:05 600 MG Multivitamins (Multivitamin Tab) 1 tab QAM PO 08/28/16 09:00 09/27/16 08:59 08/29/16 09:06 1 TAB Carvedilol (Coreg Tab) 6.25 mg BID PO 08/28/16 21:00 09/27/16 20:59 08/29/16 09:06 6.25 MG Thiamine HCl (Vitamin B-1 Tab) 100 mg QAM PO 08/30/16 09:00 09/29/16 08:59 Folic Acid (Folvite Tab) 1 mg QAM PO 08/30/16 09:00 09/29/16 08:59 Lorazepam (Ativan Tab) 1 mg Q1H PRN PO 08/29/16 13:00 09/28/16 12:59 Objective Vital Signs Date Time Temp Pulse Resp B/P Pulse Ox O2 Delivery O2 Flow Rate FiO2 08/29/16 12:00 Room Air 08/29/16 11:56 36.7 102 20 97 08/29/16 11:23 36.7 102 20 118/68 97 Room Air 08/29/16 08:00 Room Air 08/29/16 07:29 36.9 91 20 132/87 99 Room Air 08/29/16 04:00 99 Room Air 08/29/16 04:00 36.7 101 22 101/64 99 Room Air 08/28/16 23:59 95 Room Air 08/28/16 23:59 36.8 89 20 118/74 95 Room Air 08/28/16 20:00 96 Room Air 08/28/16 19:36 36.5 90 18 114/79 96 08/28/16 16:16 36.6 129 20 123/75 97 08/28/16 16:00 Room Air Physical Exam General Appearance: WD/WN, no apparent distress Eyes: normal inspection, EOMI ENT: hearing grossly normal, pharynx normal Neck: supple, no adenopathy, no JVD Respiratory/Chest: lungs clear, no respiratory distress Cardiovascular: regular rate, rhythm, no gallop, no murmur Abdomen: normal bowel sounds, non tender, soft Extremities: non-tender, no pedal edema Neurologic/Psychiatric: alert, normal mood/affect, oriented x 3 Skin: normal color, warm/dry, no rash Lymphatic: no adenopathy Laboratory Results Last 24 Hours Test 08/29/16 04:08 White Blood Count 4.69 K/uL Red Blood Count 3.65 M/uL Hemoglobin 13.0 g/dL Hematocrit 38.1 % Mean Corpuscular Volume 104.4 fL Mean Corpuscular Hemoglobin 35.6 pg Mean Corpuscular Hemoglobin Concent 34.1 g/dl RDW Standard Deviation 52.0 fL RDW Coefficient of Variation 13.7 % Platelet Count 106 K/uL Mean Platelet Volume 10.5 fL Sodium Level 141 mmol/L Potassium Level 3.9 mmol/L Chloride Level 105 mmol/L Carbon Dioxide Level 28 mmol/L Anion Gap 8.0 mmol/L Blood Urea Nitrogen 12 mg/dl Creatinine 0.84 mg/dl Est Creatinine Clear Calc Drug Dose 136.0 ml/min Estimated GFR () 129.6 Estimated GFR (Non- 111.9 BUN/Creatinine Ratio 14.3 Random Glucose 98 mg/dl Calcium Level 9.0 mg/dl Phosphorus Level 4.6 mg/dl Magnesium Level 2.0 mg/dl Total Bilirubin 1.5 mg/dl Aspartate Amino Transf (AST/SGOT) 76 U/L Alanine Aminotransferase (ALT/SGPT) 106 U/L Alkaline Phosphatase 85 U/L Total Protein 6.5 gm/dl Albumin 3.5 gm/dl Globulin 3.0 gm/dl Albumin/Globulin Ratio 1.2 Assessment and Plan Pleasant 36 year old gentleman with alcohol withdrawal seizures and new diagnosis of alcoholic cardiomyopathy Doing well at this time. No events overnight. Did need 1 dose of Ativan. Need for ativan gradually reducing. Goal is to be off Ativan at discharge. Our plan for him is as follows: Alcoholic Cardiomyopathy - New LBBB prompting echocardiogram. Reduced EF 25-30%. The following medications have been started. These should continue to be titrated up as tolerated by the patient Continue Coreg has been titrated to 6 mg daily Continue Lisinopril remains at 5 mg BID - Cardiology recommendations appreciated Recommend titrating meds to maximum tolerated If local, would see patient as outpatient 1-2 weeks after discharge Will require follow-up echocardiogram 3 months after on maximally tolerated medical therapy - Pneumococcal vaccine (PPSV 23) given - Alcohol cessation reviewed with patient. Awaiting acceptance for inpatient rehabilitation. Chronic Cough with Tobacco Abuse - Continue Nicotine Patch; Smoking cessation counselling - Continue Mucinex Chronic Ethanol Abuse - Continue Lorazepam 1 mg q hourly for anxiety; changed to PO Rehab facility has noted it will not accept if he is still on Benzodiazepine - Continue Gabapentin taper; last due due tomorrow - Continue Multivitamin/Thiamine/Folate. Folate and Thiamine converted to PO Transaminitis - Continues to improve - Discontinue monitoring; would recommend outpatient follow-up labs Alcohol Withdrawal Seizures - Seizure free for 72 hours - No electrolyte abnormalities - Will continue to check to follow daily BMP Bipolar Depression - Currently not on any medications at home - Will contact mental health for recommendations on whether gabapentin would be appropriate to be discharged on and may curb need for use of benzodiazepine for withdrawal symptoms Hypokalemia - Resolved; at 3.9 today Hypomagnesemia - Resolved Thrombocytopenia - Stable between 80 and 100 - Likely secondary to chronic alcohol consumption - Follow-up labs as outpatient Code Status - Level I Code Disposition - Telemetry - Rehab facility available; patient needs to be off benzodiazepines; can have PO gabapentin but must be a stable dose; need recommendations from [facility] in this regard - Stable from a cardiac standpoint, will transfer in-house to telemetry today Continued [facility] stay due to: other (awaiting rehabilitation placement) Discharge planning: rehab hospital Reviewed: Pt Seen/Exam by Me History no new concerns Constitutional: denies: fever Respiratory: negative: short of breath Cardiovascular: denies chest pain Neurological/Psych: positive: anxiety General Appearance: no apparent distress Respiratory: lungs clear, no respiratory distress Cardiovascular: regular rate, rhythm Neurologic/Psychiatric: alert, oriented x 3 Skin Characteristics: warm/dry Assessment/Plan I have reviewed the medical record and performed a history and physical examination of this patient today. I have discussed the case with Dr. Ron. The above note reflects my findings, conclusions, and recommendations. Awaiting placement to inpatient [facility].
[2016-08-29] MEDS ORDERED: LORAZEPAM 0.5 MG TAB PO STA (13:12)
[2016-08-29] MEDS ORDERED: LORAZEPAM 0.5 MG TAB ONE (13:24)
[2016-08-29 15:58] VITALS: BP 132/78; PULSE 89; TEMP 36.5; O2SAT 97
[2016-08-29] MEDS ORDERED: LORAZEPAM 1 MG TAB PO SCH (21:00)
[2016-08-30] VITALS: BP 117/62; PULSE 85; TEMP 36.7; O2SAT 95
[2016-08-30] MEDS ORDERED: GABAPENTIN 600MG X1 DOSE PO SCH ×2 (02:30→09:00)
[2016-08-30 07:23] LABS: HEMATOCRIT 40.5 % (42-52); MEAN CELL VOLUME 106.3 fL (80-100); MEAN CORPUSCULAR HEMOGLOBIN 36.7 pg (25-34); MEAN CORPUSCULAR HGB CONC 34.6 g/dl (32-36); MEAN PLATELET VOLUME 10.1 fL (7.4-10.4); PLATELET COUNT 152 K/uL (130-400); RED BLOOD COUNT 3.81 M/uL (4.7-6.1); WHITE BLOOD COUNT 5.18 K/uL (4.8-10.8)
[2016-08-30 07:52] LABS: BUN/CREATININE RATIO 14.3 (10-20); CALCIUM 9.8 mg/dl (8.5-10.1); CREATININE 0.76 mg/dl (0.60-1.40); POTASSIUM 4.1 mmol/L (3.5-5.1)
[2016-08-30 07:55] LABS: ALB/GLOB RATIO 1.2 (0.9-2)
[2016-08-30 08:02] VITALS: BP 115/73; PULSE 88; TEMP 36.9; O2SAT 98
[2016-08-30] MEDS: CARVEDILOL 6.25 MG TAB PO SCH (08:16)
[2016-08-30] MEDS: GUAIFENESIN 600 MG TABCR PO SCH (08:16)
[2016-08-30] MEDS: LISINOPRIL 5 MG TAB PO SCH (08:17)
[2016-08-30] MEDS: PANTOprazole SOD 40 MG TAB PO SCH (08:17)
[2016-08-30] MEDS: MULTIVITAMIN TAB PO SCH (08:18)
[2016-08-30] MEDS: NICOTINE 14 MG/24 HR TDSY TD SCH (08:20)
[2016-08-30] MEDS ORDERED: THIAMINE HCL 100 MG TAB PO SCH (09:00)
[2016-08-30] MEDS ORDERED: GABAPENTIN 600 MG TAB PO SCH (09:00)
[2016-08-30] MEDS ORDERED: CRG625 PO (09:39)
[2016-08-30] MEDS ORDERED: NCDT14 TD (09:39)
[2016-08-30] MEDS ORDERED: GFNSR600 PO (09:39)
[2016-08-30] MEDS ORDERED: LSN5 PO (09:39)
[2016-08-30] MEDS ORDERED: PRLSR20 PO (09:39)
[2016-08-30] MEDS ORDERED: GABA300C19 PO (09:39)
[2016-08-30] MEDS: ALUMINUM/MAGNESIUM/SIMETH (MAALOX MAX) 30 ML UDC PO PRN (09:44)
[2016-08-30 09:54] VITALS: BP 115/73; PULSE 88; TEMP 36.9; O2SAT 98
--- NOTE | 2016-08-30 10:35 | Discharge Instructions ---
Discharge Instructions Admission Reason for Admission: Alcohol Related Seizures, Alcohol Withdrawal Discharge Discharge Diagnosis / Problem: Alcohol withdrawal seizure Discharge Goals Goal(s): Improve function, Improve disease control, Improve nutritional status , Learn about illness, Prevent Disease Progression Activity Recommendations Activity Limitations: per Instructions/Follow-up section Lifting Limitations: until after follow-up appointment Exercise/Sports Limitations: until after follow-up appointment May Resume Sexual Activity: after follow-up appointment Shower/Bathe: no limitations . Instructions / Follow-Up Instructions / Follow-Up You were admitted to the hospital after you had a seizure related to alcohol withdrawal. To prevent further seizures and help with the symptoms related to alcohol withdrawal, you were treated with IV Ativan and gabapentin. You had no further seizures while admitted to the hospital, and your acute withdrawal symptoms stabilized with the medications. While admitted, you also had an EKG done to look at your heart, followed by an echocardiogram. There were abnormalities noted so we followed up with an ultrasound of your heart. This showed that your heart is not veronica as efficiently as it should. This is called congestive heart failure. Given your history, it is likely that it is related to your long-standing use of alcohol. You were seen by our Blood Tester Fowl and started on the appropriate medicines which include: Coreg (generic name carvedilol) 6.25 mg twice per day and lisinopril 5 mg once daily. After discharge you will need to continue these two medications. USP, stopping alcohol use may also improve your heart condition. Related to your heart findings, you will also need to decrease your salt intake to less than 2 grams per day. In addition to limiting table salt, most fast foods, processed foods in packaging, and canned foods contain high amounts of sodium (salt). Reading the nutrition labels and making sure that your daily intake does not exceed 2 grams will help prevent symptoms such as leg swelling and difficulty breathing. In addition, please weigh yourself every morning after you urinate and before eating or drinking anything, and write down the values to show to your doctor. If you gain more than 3 pounds in the span of a couple days, you should see a physician for further instructions. You were also seen by our psychiatrist and it is recommended that you follow-up with a psychiatrist after discharge for further assessment. As you are discharged, we will stop the Ativan but will continue the gabapentin 300 mg once daily after discharge. You can continue Prilosec for reflux. You can continue Mucinex for your cough You are being [facility] to [facility] as an inpatient. We will help you arrange follow-up with Cardiology in one week, who will reassess you and arrange for a repeat echocardiogram to monitor your heart condition. We understand that you have a primary care physician at your home in [place] , but we can help you establish with a local primary care physician while you are in rehabilitation. The facility should also have a staff physician. We wish you all the best at rehab. It has been a pleasure participating in your care. Current Hospital Diet Patient's current hospital diet: Regular Diet Discharge Diet Recommended Diet: AHA Diet (Heart Healthy), Low Sodium Diet (2gm Na) Pending Studies Studies pending at discharge: no Medical Emergencies . Who to Call and When: Medical Emergencies: If at any time you feel your situation is an emergency, please call 911 immediately. . Non-Emergent Contact Non-Emergency issues call your: Primary Care Provider Call Non-Emergent contact if: you have a fever, your pain is unusual for you, your pain is concerning you . . "Provider Documentation" section prepared by Lee Ron. VTE Core Measure Inpt VTE Proph given/why not?: Treatment not indicated
--- NOTE | 2016-08-30 17:37 | Discharge Summary ---
Discharge Summary Admission Date: Aug 26, 2016 at 02:19 Discharge Date: Aug 30, 2016 Discharge Disposition: Home Principal Diagnosis: EtOH withdrawal seizures, Alcohol-related cardiomyopathy, systolic CHF Problems/Secondary Diagnoses: Chronic Alcohol Abuse Procedures: Interpretation Summary * Name: FLAVIO RYAN Study Date: 08/26/2016 07:31 AM BP: 146/90 mmHg * Patient [place] [facility]\E[facility]\S\1 HR: 82 * : 1980 (M/d/yyyy) Gender: Male Height: 73 in * Age: 36 yrs Ethnicity: [place] Weight: 207 lb * Ordering Physician: Jac Lemus * Performed By: Moira Hdez * * Reason For Study: LBBB * BSA: 2.2 m2 * -- Conclusions -- * Left ventricular systolic function is severely reduced. * There is severe global hypokinesis of the left ventricle. * Ejection Fraction = 25-30%. * There is moderate to severe mitral regurgitation. (Lee Ron MD) Medication Reconciliation New Medications: Carvedilol (Carvedilol) 6.25 Mg Tab 6.25 MG PO BID for 30 Days, #60 TAB Gabapentin (Neurontin) 300 Mg Cap 300 MG PO DAILY for 30 Days, #30 CAP Guaifenesin Ext Rel (Mucinex Ext Rel) 600 Mg Tabcr 600 MG PO Q12 for 10 Days, #20 TAB Lisinopril (Lisinopril) 5 Mg Tab 5 MG PO QAM for 30 Days, #30 TAB Nicotine (Nicotine) 1 Patch Tdsy 1 PATCH TD QAM for 30 Days, #30 PATCH Continued Medications: Omeprazole (Prilosec) 20 Mg Capcr 20 MG PO DAILY for 30 Days, #30 CAP (This prescription has been renewed) Discharge Exam Review of systems negative unless stated in the hospital course Physical Exam: General Appearance: WD/WN, no apparent distress Eyes: normal inspection, EOMI ENT: hearing grossly normal, pharynx normal Neck: supple, no adenopathy, no JVD Respiratory/Chest: lungs clear, no respiratory distress Cardiovascular: regular rate, rhythm, no gallop, no murmur Abdomen / GI: normal bowel sounds, non tender, soft Extremities: no calf tenderness, no pedal edema Neurologic/Psychiatric: alert, normal mood/affect, oriented x 3 Skin: normal color, warm/dry, no rash Lymphatic: no adenopathy (Lee Ron MD) Review of Systems: Constitutional: No fever Respiratory: No shortness of breath Cardiovascular: No chest pain Abdomen: No pain Neurologic: No memory loss, No weakness Psychiatric: + anxiety, No depression symptoms Physical Exam: General Appearance: no apparent distress Respiratory/Chest: lungs clear, no respiratory distress Cardiovascular: regular rate, rhythm Neurologic/Psychiatric: alert, normal mood/affect, normal reflexes, oriented x 3 Skin: warm/dry (Darcy Bro M.D.) Hospital Course Patient is a 36 year old male, originally from [place], with a past medical history significant for chronic alcohol abuse. He presented after cessation of alcohol and onset of withdrawal seizures. A new LBBB was noted on EKG, which led to echocardiogram. An EF of 25-30% , making for a diagnosis of alcoholic cardiomyopathy with systolic heart failure. For his alcohol withdrawal, he was treated with PRN Ativan and a tapering schedule of Gabapentin. In addition, he was started on medical therapy for systolic heart failure including Carvedilol and Lisinopril. Patient was agreeable to entering alcohol rehabilitation program in [place]. He will be attending [facility]. On discharge, he was sent home on Carvedilol, Lisinopril as well as a stable dose of Gabapentin to be continued until accepting physician at [facility] deems fit that it can be discontinued. He will follow-up with our cardiology service in 1 week. At that time, it will be decided, when his repeat echo is required. He will need to establish with a local PCP. He is with [facility] in [place] so a PCP with affiliation would likely be best to allow for better transition of care. PCP should also consider referral to psychiatry. At discharge he was doing well and in stable condition. Total Time Spent: Less than 30 minutes This includes examination of the patient, discharge planning, medication reconciliation, and communication with other providers. (Lee Ron MD) I have reviewed the medical record and performed a history and physical examination of this patient today. I have discussed the case with Dr Ron. The above note reflects my findings, conclusions, and recommendations. Total Time Spent: Greater than 30 minutes (35) (Darcy Bro M.D.) Discharge Instructions Please refer to the electronic Patient Visit Report (Discharge Instructions) for additional information. (Lee Ron MD) Additional Copies To Jhon Salinas M.D.
== END 2016-08-30 11:00 | DRG 897 ==
LOC: ENRESERVTM → ENRESERVDT → C.EDC 22:54 → C.2E 08-26 02:19 → C.MS2W 08-29 12:50
PROVIDERS: ADMIT Internal Medicine; ATTEND Family Medicine
DX: F10.231 Alcohol dependence with withdrawal delirium (principal); I42.6 Alcoholic cardiomyopathy; I50.20 Unspecified systolic (congestive) heart failure; F17.210 Nicotine dependence, cigarettes, uncomplicated; I44.7 Left bundle-branch block, unspecified; E83.42 Hypomagnesemia; E87.6 Hypokalemia; D69.6 Thrombocytopenia, unspecified; I34.0 Nonrheumatic mitral (valve) insufficiency; F31.9 Bipolar disorder, unspecified; G40.409 Other generalized epilepsy and epileptic syndromes, not intractable, without status epilepticus; Z81.1 Family history of alcohol abuse and dependence; Z81.8 Family history of other mental and behavioral disorders